=== PATIENT | female | born 1945 | race Caucasian/White ===

== ENCOUNTER 2024-11-09 19:57 | Emergency (ER) | payer MEDICARE, SELFPAY ==
[2024-11-09] VITALS (10 sets, daily range): BP systolic 133–171; BP diastolic 63–127; PULSE 69–92; RESP 20–21; TEMP 36.4–36.5; O2SAT 91–100
--- NOTE | ~2024-11-09 | CT_ITS ---
EXAMINATION: CT abdomen pelvis w con DATE: 11/09/2024 22:34 INDICATION: Abdominal pain. Constipation. TECHNIQUE: Computed tomography (CT) of the abdomen and pelvis was performed with 100 mL Omnipaque 350 intravenous contrast. Automated exposure control and iterative reconstruction technique were employed. The dose-length product was 192.65 mGy-cm. COMPARISON: None. FINDINGS: The visualized portions of lung bases demonstrate emphysema and mild atelectasis. Partially visualized is a 12 mm nodule in right middle lobe. No pleural effusion. The heart size is normal. Coronary no pericardial effusion. The liver and gallbladder are normal. Calcifications in the spleen are consistent with old granulomatous disease. There is a 2.5 cm hyperenhancing mass in the spleen. The pancreas and adrenal glands are normal. There are 3 stones in right kidney measuring up to 6 mm. There is a 10 mm cyst in left kidney. There are 4 stones in left kidney measuring up to 11 mm. There is severe left hydronephrosis. Stool distends the rectum. There is diverticulosis of the colon without evidence of diverticulitis. The appendix is not visualized. 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 There is a right hip arthroplasty. There is mild lumbar spondylosis. IMPRESSION: 1. Partially visualized 12 mm nodule in right lung middle lobe suspicious for primary bronchogenic carcinoma. Noncontrast chest CT is recommended. 2. Severe left hydronephrosis. 3. Bilateral nonobstructing kidney stones. 4. 2.5 cm hyperenhancing splenic mass, most likely a hemangioma or hamartoma. Consider PET/CT to exclude angiosarcoma. 5. Moderate stenosis of the juxtarenal aorta. 6. Stool distends the rectum. Reviewed, dictated and finalized at location E. IMPRESSION: 1. Partially visualized 12 mm nodule in right lung middle lobe suspicious for p rimary bronchogenic carcinoma. Noncontrast chest CT is recommended. 2. Severe left hydronephrosis. 3. Bilateral nonobstructing kidney stones. 4. 2.5 cm hyperenhancing splenic mass, most likely a hemangioma or hamartoma. C onsider PET/CT to exclude angiosarcoma. 5. Moderate stenosis of the juxtarenal aorta. 6. Stool distends the rectum.
[2024-11-09 20:30] LABS: Hematocrit 45.0 % (37.0-47.0); Hemoglobin 14.8 g/dL (12.0-15.0); Immature Granulocyte Percent A 0.4 % (0-0.5); Lymphocytes Absolute Auto 1.17 K/mm3 (0.9-3.2); Mean Corpuscular HGB Conc 32.9 g/dl (32-36); Mean Corpuscular Hemoglobin 30.6 pg (26-34); Mean Corpuscular Volume 93.0 fl (80-100); Nucleated Red Blood Cells Absolute Auto 0.000 K/mm3 (0.0-0.012); Nucleated Red Blood Cells Perc 0.0 % (0.0-0.2); Platelet Count Result 350 k/mm3 (150-375); Red Blood Count 4.84 M/mm3 (4.2-5.4); White Blood Count 11.1 K/mm3 (4.5-10.0)
[2024-11-09 20:45] LABS: Alanine Aminotransferase 26 U/L (6-35); Albumin Level 4.1 g/dL (3.5-5.1); Alkaline Phosphatase 96 U/L (38-126); Anion Gap 3 mmol/L (4-12); Aspartate Amino Transferase 25 U/L (14-36); Bilirubin,Total 0.5 mg/dL (0.2-1.3); Blood Urea Nitrogen 15 mg/dL (7-17); Calcium 9.9 mg/dL (8.4-10.2); Carbon Dioxide 32 mmol/L (22-30); Chloride 92 mmol/L (98-107); Estimated CRCL calculation 46 ml/min; Estimated Glomerular Filt Rate > 60; Glucose 123 mg/dL (65-110); Lipase 59 U/L (23-300); Potassium 4.3 mmol/L (3.4-5.0); Sodium 127 mmol/L (137-145); Total Protein 6.9 g/dL (6.3-8.2)
[2024-11-09 20:56] LABS: Add Urine Microscopic? YES; Appearance Urine Clear (Clear); Glucose Urine UA Negative (Negative); Leukocyte Esterase Ur Trace LEU/UL (Negative); Nitrate Urine Negative (Negative); Non Pathogenic Casts 0-2; Specific Grav Ur 1.012 (1.001-1.035)
--- OUTSIDE RECORDS SUMMARY | 2024-11-09 21:02 | XMS_ITS | Data Portability ---
Author Organization [facility] Address [address] [facility] [address] Care Team Providers Care Shader And Toner Name Role Phone BRYANT CARVAJAL Primary Care Provider [phone] Assessment No assessment recorded. Plan of Treatment Reminders Order Date Submit Date Provider Last Modified By Organization Details Last Modified Time Details Appointments ANY 15 2024 01:45P Rita Carvajal PA-C Not available Not available Not available Lab CBC 2024 025 [facility], [address] [place] [address] 2, [place], [address], 08/13/2024 13:11:47 CMP, serum or plasma 2024 025 [facility], [address] [place] [address] 2, [place], [address], 08/13/2024 13:11:45 lipid panel, serum 2024 025 [facility], [address] [place] [address] 2, [place], [address], 08/13/2024 13:11:44 HbA1c (hemoglob in A1c), blood 2024 025 [facility], [address] [place] [address] 2, [place], [address], 08/13/2024 13:11:47 Referral pulmonolo gist referral - Scheduled 5 1pm, pt adviced ER today 2024 025 asia Hooker MD, [address], [facility] [address], [address], 11/04/2024 16:04:14 Procedures None recorded. Surgeries None recorded. Imaging None recorded. Medication Orders calcitoni n (salmon) 200 unit/actu ation nasal spray 2024 025 [facility]erm[facility]/Pharmacy #[id number], [address] [place], [address], 10/07/2024 14:34:44 amlodipin e 5 mg tablet 2024 025 [facility]/Pharmacy #[id number], [address] [place], [address], 08/12/2024 14:43:48 Fosamax 70 mg tablet 2023 025 [facility]/Pharmacy #[id number], [address] [place], [address], 08/12/2024 14:16:24 Patient TargetsNo targets recorded. Patient Instructions Encounter Date Encounter Id Patient Instructions Last Modified By Organization Details Last Modified Time 12/31/2023 [id number] osteoporosis: care instructions jnanney Not available 12/31/2023 14:32:03 eating healthy foods: care instructions jnanney Not available 12/31/2023 14:32:03 08/12/2024 [id number] eating healthy foods: care instructions jnanney Not available 08/12/2024 14:43:44 chronic obstructive pulmonary disease (COPD): care instructions jnanney Not available 08/12/2024 14:43:43 08/26/2024 [id number] painful urinatio n (dysuria): care instructions jnanney Not available 08/26/2024 16:55:15 learning about high blood pressure jnanney Not available 08/26/2024 16:55:15 eating healthy foods: care instructions jnanney Not available 08/26/2024 16:55:43 11/04/2024 [id number] chronic obstructive pulmonary disease (COPD): care instructions jnanney Not available 11/04/2024 15:44:25 Reason for Referral Icu Specialist Referral for P anacinar emphysema Scheduled 11/17/2024 1pm, pt adviced ER today Referring Physician: Bryant Carvajal, Family Medicine, Encounter Date: 11/04/2024 Results Created Date Observation Date Name Description Value Unit Range Abnormal Flag Note LastModifiedBy Organization Detail LastModifiedTime 08/13/1908/13/2024 LIPID PANEL cholesterol, total 292 mg/dL 100-19 9 above high normal Not Available [facility] ([facility]) [address] [place], [address], 08/13/2024 13:11:44 08/13/19 25 08/13/2024 LIPID PANEL triglyceride s 120 mg/dL 0-149 Not Available [facility] ([facility]) [address] [place], [address], 08/13/2024 13:11:44 08/13/19 25 08/13/2024 LIPID PANEL HDL cholesterol 141 mg/dL >39 Not Available [facility]) [address] [place], [address], 08/13/2024 13:11:44 08/13/19 25 08/13/2024 LIPID PANEL VLDL cholesterol odalis 19 mg/dL 5-40 Not Available [facility] ([facility]) [address] [place], [address], 08/13/2024 13:11:44 08/13/19 25 08/13/2024 LIPID PANEL LDL chol calc ([facility]) 132 mg/dL 0-99 above high normal Not Available [facility] ([facility]) [address] [place], [address], 08/13/2024 13:11:44 08/13/19 25 08/13/2024 LIPID PANEL LDL calc comment: COMMEN T Consi greg evalu ating for Famil ial Hyper dandre stero lemia (FH), if clini rashaun indic ated. Not Available [facility] ([facility]) [address] [place], [address], 08/13/2024 13:11:44 08/13/19 25 08/13/2024 COMP. METAB OLIC PANEL (14) glucose 109 mg/dL 70-99 above high normal Not Available [facility] ([facility]) [address] [place], [address], 08/13/2024 13:11:45 08/13/19 25 08/13/2024 COMP. METAB OLIC PANEL (14) BUN 14 mg/dL 8-27 Not Available [facility] ([facility]) [address] [place], [address], 08/13/2024 13:11:45 08/13/19 25 08/13/2024 COMP. METAB OLIC PANEL (14) creatinine 0.99 mg/dL 0.57-1 .00 Not Available [facility] ([facility]) [address] [place], [address], 08/13/2024 13:11:45 08/13/19 25 08/13/2024 COMP. METAB OLIC PANEL (14) eGFR 58 mL/mi n/1.7 3 >59 below low normal Not Available [facility] ([facility]) [address] [place], [address], 08/13/2024 13:11:45 08/13/19 25 08/13/2024 COMP. METAB OLIC PANEL (14) BUN/creatini ne ratio 14 12-28 Not Available [facility] ([facility]) [address] [place], [address], 08/13/2024 13:11:45 08/13/19 25 08/13/2024 COMP. METAB OLIC PANEL (14) sodium 139 mmol/ L 134-14 4 Not Available [facility] ([facility]) [address] [place], [address], 08/13/2024 13:11:45 08/13/19 25 08/13/2024 COMP. METAB OLIC PANEL (14) potassium 4.6 mmol/ L 3.5-5. 2 Not Available [facility] ([facility]) [address] [facility] [place], [address], 08/13/2024 13:11:45 08/13/19 25 08/13/2024 COMP. METAB OLIC PANEL (14) chloride 100 mmol/ L 96-106 Not Available [facility] ([facility]) [address] [facility] [place], [address], 08/13/2024 13:11:45 08/13/19 25 08/13/2024 COMP. METAB OLIC PANEL (14) carbon dioxide, total 20 mmol/ L 20-29 Not Available [facility] ([facility]) [address] [facility] [place], [address], 08/13/2024 13:11:45 08/13/19 25 08/13/2024 COMP. METAB OLIC PANEL (14) calcium 9.6 mg/dL 8.7-10 .3 Not Available [facility] ([facility]) [address] [place], [address], 08/13/2024 13:11:45 08/13/19 25 08/13/2024 COMP. METAB OLIC PANEL (14) protein, total 6.8 g/dL 6.0-8. 5 Not Available [facility] ([facility]) [address] [place], [address], 08/13/2024 13:11:45 08/13/19 25 08/13/2024 COMP. METAB OLIC PANEL (14) albumin 4.3 g/dL 3.8-4. 8 Not Available [facility] ([facility]) [address] [place], [address], 08/13/2024 13:11:45 08/13/19 25 08/13/2024 COMP. METAB OLIC PANEL (14) globulin, total 2.5 g/dL 1.5-4. 5 Not Available [facility] ([facility]) [address] [place], [address], 08/13/2024 13:11:45 08/13/19 25 08/13/2024 COMP. METAB OLIC PANEL (14) bilirubin, total 0.4 mg/dL 0.0-1. 2 Not Available [facility] ([facility]) [address] [place], [address], 08/13/2024 13:11:45 08/13/19 25 08/13/2024 COMP. METAB OLIC PANEL (14) alkaline phosphatase 130 IU/L 44-121 above high normal Not Available [facility] ([facility]) [address] [place], [address], 08/13/2024 13:11:45 08/13/19 25 08/13/2024 COMP. METAB OLIC PANEL (14) AST (SGOT) 16 IU/L 0-40 Not Available [facility] ([facility]) [address] [place], [address], 08/13/2024 13:11:45 08/13/19 25 08/13/2024 COMP. METAB OLIC PANEL (14) ALT (SGPT) 13 IU/L 0-32 Not Available [facility] ([facility]) [address] [facility] [place], [address], 08/13/2024 13:11:45 08/13/19 25 08/13/2024 LITHO LINK CKD PROGR AM interpretati on Note Suppl kip colindres is avail able. Not Available [facility] ([facility] [address] [facility] [place], [address], 08/13/2024 13:11:46 08/13/19 25 08/13/2024 LITHO LINK CKD PROGR AM pdf . Not Available [facility] ([facility]) [address] [facility] [place], [address], 08/13/2024 13:11:46 08/13/19 25 08/13/2024 CARDI OVASC ULAR REPOR T interpretati on Note Suppl kip smith repor t is avail able. Not Available [facility] ([facility]) [address] [facility], [place], [address], 08/13/2024 13:11:46 08/13/19 25 08/13/2024 CARDI OVASC ULAR REPOR T pdf Not applic able Not Available [facility] ([facility]) [address] [facility], [place], [address], 08/13/2024 13:11:46 08/13/1908/13/2024 HEMOG LOBIN A1C hemoglobin A1C 5.5 % 4.8-5. 6 Predi abete s: 5.7 - 6.4 Diabe madie: >6.4 Glyce erasmo contr ol for adult s with diabe madie: <7.0 Not Available [facility] ([facility]) [address] [facility], [place], [address], 08/13/2024 13:11:47 08/13/19 25 08/13/2024 CBC, PLATE LET, NO DIFFE RENTI AL WBC 9.0 x10e3 /uL 3.4-10 .8 Not Available [facility] ([facility]) [address] [place], [address], 08/13/2024 13:11:47 08/13/19 25 08/13/2024 CBC, PLATE LET, NO DIFFE RENTI AL RBC 5.29 x10e6 /uL 3.77-5 .28 above high normal Not Available [facility] ([facility]) [address] [place], [address], 08/13/2024 13:11:47 08/13/19 25 08/13/2024 CBC, PLATE LET, NO DIFFE RENTI AL hemoglobin 17.2 g/dL 11.1-1 5.9 above high normal Not Available [facility] ([facility]) [address] [place], [address], 08/13/2024 13:11:47 08/13/1908/13/2024 CBC, PLATE LET, NO DIFFE RENTI AL hematocrit 51.8 % 34.0-4 6.6 above high normal Not Available [facility] ([facility]) [address] [place], [address], 08/13/2024 13:11:47 08/13/1908/13/2024 CBC, PLATE LET, NO DIFFE RENTI AL MCV 98 fL 79-97 above high normal Not Available [facility] ([facility]) [address] [place], [address], 08/13/2024 13:11:47 08/13/1908/13/2024 CBC, PLATE LET, NO DIFFE RENTI AL MCH 32.5 pg 26.6-3 3.0 Not Available [facility] ([facility]) [address] [place], [address], 08/13/2024 13:11:47 08/13/1908/13/2024 CBC, PLATE LET, NO DIFFE RENTI AL MCHC 33.2 g/dL 31.5-3 5.7 Not Available [facility] ([facility]) [address] [place], [address], 08/13/2024 13:11:47 08/13/1908/13/2024 CBC, PLATE LET, NO DIFFE RENTI AL RDW 12.3 % 11.7-1 5.4 Not Available [facility] ([facility]) [address] [place], [address], 08/13/2024 13:11:47 08/13/19 25 08/13/2024 CBC, PLATE LET, NO DIFFE RENTI AL platelets 314 x10e3 /uL 150-45 0 Not Available [facility] ([facility]) [address] [facility] [place], [address], 08/13/2024 13:11:47 08/27/19 25 08/26/2024 urina lysis , dipst ick Leukocytes Negati ve Not Available In-Office Order Internal Use Only DO Not Attach Compendium DO Not Attach Compendium, Do Not Delete/merge, 08/26/2024 18:37:53 08/27/19 25 08/26/2024 urina lysis , dipst ick Nitrite negati ve Not Available In-Office Order Internal Use Only DO Not Attach Compendium DO Not Attach Compendium, Do Not Delete/merge, 08/26/2024 18:37:53 08/27/19 25 08/26/2024 urina lysis , dipst ick Urobilinogen .2 Not Available In-Of fice Order Internal Use Only DO Not Attach Compendium DO Not Attach Compendium, Do Not Delete/merge, 08/26/2024 18:37:53 08/27/19 25 08/26/2024 urina lysis , dipst ick Protein Negati ve Not Available In-Office Order Internal Use Only DO Not Attach Compendium DO Not Attach Compendium, Do Not Delete/merge, 08/26/2024 18:37:53 08/27/19 25 08/26/2024 urina lysis , dipst ick pH 6.0 Not Available In-Office Order Internal Use Only DO Not Attach Compendium DO Not Attach Compendium, Do Not Delete/merge, 08/26/2024 18:37:53 08/27/19 25 08/26/2024 urina lysis , dipst ick Blood Negati ve Not Available In-Office Order Internal Use Only DO Not Attach Compendium DO Not Attach Compendium, Do Not Delete/merge, 08/26/2024 18:37:53 08/27/19 25 08/26/2024 urina lysis , dipst ick Specific [place] 1.010 Not Available In-Off ice Order Internal Use Only DO Not Attach Compendium DO Not Attach Compendium, Do Not Delete/merge, 08/26/2024 18:37:53 08/27/19 25 08/26/2024 urina lysis , dipst ick Ketone Negati ve Not Available In-Office Order Internal Use Only DO Not Attach Compendium DO Not Attach Compendium, Do Not Delete/merge, [facility] 08/26/2024 18:37:53 08/27/19 25 08/26/2024 urina lysis , dipst ick Bilirubin Negati ve Not Available In-Office Order Internal Use Only DO Not Attach Compendium DO Not Attach Compendium, Do Not Delete/merge, [facility] 08/26/2024 18:37:53 08/27/19 25 08/26/2024 urina lysis , dipst ick Glucose Negati ve Not Available In-Office Order Internal Use Only DO Not Attach Compendium DO Not Attach Compendium, Do Not Delete/merge, [facility] 08/26/2024 18:37:53 08/27/19 25 08/26/2024 urina lysis , dipst ick Appearance Clear Not Available In-Offi ce Order Internal Use Only DO Not Attach Compendium DO Not Attach Compendium, Do Not Delete/merge, [facility] 08/26/2024 18:37:53 08/27/1908/26/2024 urina lysis , dipst ick Color Yellow Not Available In-Office Order Internal Use Only DO Not Attach Compendium DO Not Attach Compendium, Do Not Delete/merge, [facility] 08/26/2024 18:37:53 09/30/1909/29/2024 Lipas e [Enzy matic activ ity/v olume ] in Serum or Plasm a lipase [enzymatic activity/vol ume] in serum or plasma 24 U/L low: 8U/Lhi gh: 78U/L Not Available Not Available 10/07/2024 05:16:09 09/30/19 25 09/29/2024 Lipas e [Enzy matic activ ity/v olume ] in Serum or Plasm a interpretati on and review of laboratory results Normal Not Available Not Available 03/2024 05:16:09 09/30/19 25 09/29/2024 Compr ehens joel metab olic 2000 panel - Serum or Plasm a sodium [moles/volum e] in serum or plasma 135 mmol/ L low: 136mmo l/Lhig h: 145mmo l/L low Not Available Not Available 10/07/2024 05:16:09 09/30/1909/29/2024 Compr Isagen joel [employer] 1999 panel - Serum or Plasm a potassium [moles/volum e] in serum or plasma 4.2 mmol/ L low: 3.5mmo l/Lhig h: 5.1mmo l/L Not Available Not Available 10/07/2024 05:16:09 09/30/19 25 09/29/2024 Compr [employer] joel [employer] 1999 panel - Serum or Plasm a chloride [moles/volum e] in serum or plasma 97 mmol/ L low: 98mmol /Lhigh : 107mmo l/L low Not Available Not Available 10/07/2024 05:16:09 09/30/19 25 09/29/2024 Compr [employer] joel [employer] 1999 panel - Serum or Plasm a carbon dioxide, total [moles/volum e] in serum or plasma 27 mmol/ L low: 22mmol /Lhigh : 30mmol /L Not Available Not Available 10/07/2024 05:16:09 09/30/1909/29/2024 Compr [employer] 1999 panel - Serum or Plasm a anion gap in serum or plasma by calculation 15.2 mmol/ L high: 18mmol /L Not Available Not Available 10/07/2024 05:16:09 09/30/1909/29/2024 Compr Isagen joel [employer] 1999 panel - Serum or Plasm a glucose [mass/volume ] in serum or plasma 110 mg/dL low: 70mg/d Lhigh: 99mg/d L high Not Available Not Available 10/07/2024 05:16:09 09/30/19 25 09/29/2024 Compr Isagen joel [employer] 1999 panel - Serum or Plasm a urea nitrogen [mass/volume ] in serum or plasma 8 mg/dL low: 10mg/d Lhigh: 20mg/d L low Not Available Not Available 10/07/2024 05:16:09 09/30/19 25 09/29/2024 Compr Isagen joel [employer] 2000 panel - Serum or Plasm a creatinine [mass/volume ] in serum or plasma 0.62 mg/dL low: 0.6mg/ dLhigh : 1mg/dL Not Available Not Available 10/07/2024 05:16:09/30/1909/29/2024 [facility] [employer] [facility] 1999 panel - Serum or Plasm a urea nitrogen/cre atinine [mass ratio] in serum or plasma 13 text: 12 - 20 ratio Not Available Not Available 10/07/2024 05:16:09/30/1909/29/2024 [facility] [employer] [facility] 1999 panel - Serum or Plasm a protein [mass/volume ] in serum or plasma 7 g/dL low: 6g/dLh igh: 8g/dL Not Available Not Available 10/07/2024 05:16:09/30/1909/29/2024 [facility] [employer] [place] [address] panel - Serum or Plasm a albumin [mass/volume ] in serum or plasma 4.1 g/dL low: 3.5g/d Lhigh: 5g/dL Not Available Not Available 10/07/2024 05:16:09/30/1909/29/2024 [facility] [employer] [place] [address] panel - Serum or Plasm a albumin/glob ulin [mass ratio] in serum or plasma 1.4 low: 1high: 2.2 Not Available Not Available 10/07/2024 05:16:09/30/1909/29/2024 [facility] [employer] [place] [address] panel - Serum or Plasm a calcium [mass/volume ] in serum or plasma 9.8 mg/dL low: 8.7mg/ dLhigh : 10.5mg /dL Not Available Not Available 10/07/2024 05:16:09 09/30/1909/29/2024 [facility] [employer] [facility] 1999 panel - Serum or Plasm a bilirubin.to bill [mass/volume ] in serum or plasma 0.5 mg/dL low: 0.2mg/ dLhigh : 1.2mg/ dL Not Available Not Available 10/07/2024 05:16:09/30/1909/29/2024 [facility] [employer] [facility] 2000 panel - Serum or Plasm a aspartate aminotransfe rase [enzymatic activity/vol ume] in serum or plasma 17 U/L high: 43U/L Not Available Not Available 10/07/2024 05:16:09 09/30/1909/29/2024 Compr ehens joel metab olic 1999 panel - Serum or Plasm a alanine aminotransfe rase [enzymatic activity/vol ume] in serum or plasma 9 U/L high: 56U/L Not Available Not Available 10/07/2024 05:16:09 09/30/1909/29/2024 Compr ehens joel metab olic 1999 panel - Serum or Plasm a alkaline phosphatase [enzymatic activity/vol ume] in serum or plasma 101 U/L low: 40U/Lh igh: 150U/L Not Available Not Available 10/07/2024 05:16:09 09/30/1909/29/2024 Compr ehens joel metab olic 1999 panel - Serum or Plasm a glomerular filtration rate [volume rate/area] in serum, plasma or blood by creatinine-b ased formula (CKD-epi 2020)/1.73 sq M low: 60 Creat inine Clear ance is the prefe rred crite bridget for selec ting drug dose adjus tment s in renal ly impai red patie nts. The GFR is provi ded as addit ional perti nent clini odalis infor matio n. GFR is repor gregorio in mL/mi n/1.7 3 sq m. Calcu latio n based on the 2020 Chron ic Kidne y Disea se Epide miolo gy Colla borat ion (CKD- EPI) equat ion refit witho ut adjus tment for race. Not Available Not Available 10/07/2024 05:16:09 09/30/1909/29/2024 Compr ehens joel metab olic 1999 panel - Serum or Plasm a glomerular filtration rate [volume rate/area] in serum, plasma or blood by creatinine-b ased formula (MDRD)/1.73 sq M among black population low: 60 Creat inine Clear ance is the prefe rred crite bridget for selec ting drug dose adjus tment s in renal ly impai red patie nts. The GFR is provi ded as addit ional perti nent clini odalis infor matio n. GFR is repor gregorio in mL/mi n/1.7 3 sq m. Calcu latio n based on the 2008 Chron ic Kidne y Disea se Epide miolo gy Colla borat ion (CKD- EPI). Not Available Not Available 10/07/2024 05:16:09 09/30/1909/29/2024 Compr ehens joel metab olic 2000 panel - Serum or Plasm a glomerular filtration rate [volume rate/area] in serum, plasma or blood by creatinine-b ased formula (MDRD)/1.73 sq M among non black population low: 60 Creat inine Clear ance is the prefe rred crite bridget for selec ting drug dose adjus tment s in renal ly impai red patie nts. The GFR is provi ded as addit ional perti nent clini odalis infor matio n. GFR is repor gregorio in mL/mi n/1.7 3 sq m. Calcu latio n based on the 2008 Chron ic Kidne y Disea se Epide miolo gy Colla borat ion (CKD- EPI). Not Available Not Available 10/07/2024 05:16:09 09/30/19 25 09/29/2024 Compr ehens joel metab olic 2000 panel - Serum or Plasm a interpretati on and review of laboratory results Abnorm al Not Available Not Available 05:16:09 10/02/1910/01/2024 CBC W Auto Diffe renti al panel - Blood leukocytes [#/volume] in blood by automated count 7.42 text: 4.00 - 12.00 10(3)/ mcL Not Available Not Available 10/07/2024 05:16:09 10/02/19 25 10/01/2024 CBC W Auto Diffe renti al panel - Blood erythrocytes [#/volume] in blood by automated count 4.47 text: 3.80 - 5.30 10(6)/ mcL Not Available Not Available 10/07/2024 05:16:09 10/02/1910/01/2024 CBC W Auto Diffe renti al panel - Blood hemoglobin [mass/volume ] in blood 14.4 g/dL low: 12g/dL high: 15.8g/ dL Not Available Not Available 10/07/2024 05:16:09 10/02/1910/01/2024 CBC W Auto Diffe renti al panel - Blood hematocrit [volume fraction] of blood by automated count 43.4 % low: 36%hig h: 47% Not Available Not Available 10/07/2024 05:16:09 10/02/19 25 10/01/2024 CBC W Auto Diffe renti al panel - Blood MCV [entitic mean volume] in red blood cells by automated count 97.1 fL low: 82fLhi gh: 96fL high Not Available Not Available 10/07/2024 05:16:09 10/02/19 25 10/01/2024 CBC W Auto Diffe renti al panel - Blood MCH [entitic mass] by automated count 32.2 pg low: 26pghi gh: 34pg Not Available Not Available 10/07/2024 05:16:09 10/02/1910/01/2024 CBC W Auto Diffe renti al panel - Blood MCHC [entitic mass/volume] in red blood cells by automated count 33.2 g/dL low: 31g/dL high: 36g/dL Not Available Not Available 10/07/2024 05:16:10/02/1910/01/2024 CBC W Auto Diffe renti al panel - Blood platelets [#/volume] in blood 260 text: 140 - 440 10(3)/ mcL Not Available Not Available 10/07/2024 05:16:10/02/1910/01/2024 CBC W Auto Diffe renti al panel - Blood erythrocyte [distwidth] in blood by automated count 11.9 % low: 11.8%h igh: 15.5% Not Available Not Available 10/07/2024 05:16:10/02/1910/01/2024 CBC W Auto Diffe renti al panel - Blood platelet [entitic mean volume] in blood by automated count 9.3 fL low: 9.7fLh igh: 12.4fL low Not Available Not Available 10/07/2024 05:16:09 10/02/1910/01/2024 CBC W Auto Diffe renti al panel - Blood neutrophils/ leukocytes in blood by automated count 63.2 % low: 47%hig h: 73% Not Available Not Available 10/07/2024 05:16:10/02/1910/01/2024 CBC W Auto Diffe renti al panel - Blood lymphocytes/ leukocytes in blood by automated count 27.9 % low: 18%hig h: 42% Not Available Not Available 10/07/2024 05:16:10/02/1910/01/2024 CBC W Auto Diffe renti al panel - Blood monocytes/le ukocytes in blood by automated count 7 % low: 4%high : 12% Not Available Not Available 10/07/2024 05:16:10/02/1910/01/2024 CBC W Auto Diffe renti al panel - Blood eosinophils/ leukocytes in blood by automated count 1.1 % low: 0%high : 5% Not Available Not Available 10/07/2024 05:16:10/02/1910/01/2024 CBC W Auto Diffe renti al panel - Blood basophils/le ukocytes in blood by automated count 0.5 % low: 0%high : 1% Not Available Not Available 10/07/2024 05:16:10/02/1910/01/2024 CBC W Auto Diffe renti al panel - Blood immature granulocyte 0.3 % low: 0%high : 0.4% Not Available Not Available 10/07/2024 05:16:10/02/1910/01/2024 CBC W Auto Diffe renti al panel - Blood neutrophils [#/volume] in blood by automated count 4.69 text: 1.60 - 7.70 10(3)/ mcL Not Available Not Available 10/07/2024 05:16:10/02/1910/01/2024 CBC W Auto Diffe renti al panel - Blood lymphocytes [#/volume] in blood by automated count 2.07 text: 1.30 - 3.20 10(3)/ mcL Not Available Not Available 10/07/2024 05:16:10/02/1910/01/2024 CBC W Auto Diffe renti al panel - Blood monocytes [#/volume] in blood by automated count 0.52 text: 0.20 - 1.00 10(3)/ mcL Not Available Not Available 10/07/2024 05:16:10/02/19 25 10/01/2024 CBC W Auto Diffe renti al panel - Blood eosinophils [#/volume] in blood by automated count 0.08 text: 0.00 - 0.40 10(3)/ mcL Not Available Not Available 10/07/2024 05:16:10/02/19 25 10/01/2024 CBC W Auto Diffe renti al panel - Blood basophils [#/volume] in blood by automated count 0.04 text: 0.00 - 0.10 10(3)/ mcL Not Available Not Available 10/07/2024 05:16:10/02/1910/01/2024 CBC W Auto Diffe renti al panel - Blood absolute immature granulocyte 0.02 text: 0.00 - 0.03 10 (3) mcL. Not Available Not Available 10/07/2024 05:16:10/02/1910/01/2024 CBC W Auto Diffe renti al panel - Blood nucleated erythrocytes /leukocytes [ratio] in blood 0 Not Available Not Available 03/2024 05:16:09 10/02/1910/01/2024 CBC W Auto Diffe renti al panel - Blood interpretati on and review of laboratory results Abnorm al Not Available Not Available 05:16:10/02/1910/01/2024 Basic metab olic 1999 panel - Serum or Plasm a sodium [moles/volum e] in serum or plasma 138 mmol/ L low: 136mmo l/Lhig h: 145mmo l/L Not Available Not Available 10/07/2024 05:16:09 10/02/1910/01/2024 [facility] 1999 panel - Serum or Plasm a potassium [moles/volum e] in serum or plasma 3.8 mmol/ L low: 3.5mmo l/Lhig h: 5.1mmo l/L Not Available Not Available 10/07/2024 05:16:09 10/02/1910/01/2024 [facility] 2000 panel - Serum or Plasm a chloride [moles/volum e] in serum or plasma 102 mmol/ L low: 98mmol /Lhigh : 107mmo l/L Not Available Not Available 10/07/2024 05:16:09 10/02/1910/01/2024 [facility] 1999 panel - Serum or Plasm a carbon dioxide, total [moles/volum e] in serum or plasma 28 mmol/ L low: 22mmol /Lhigh : 30mmol /L Not Available Not Available 10/07/2024 05:16:09 10/02/1910/01/2024 [facility] 1999 panel - Serum or Plasm a anion gap in serum or plasma by calculation 11.8 mmol/ L high: 18mmol /L Not Available Not Available 10/07/2024 05:16:09 10/02/1910/01/2024 [facility] 1999 panel - Serum or Plasm a glucose [mass/volume ] in serum or plasma 95 mg/dL low: 70mg/d Lhigh: 99mg/d L Not Available Not Available 10/07/2024 05:16:09 10/02/1910/01/2024 [facility] 1999 panel - Serum or Plasm a urea nitrogen [mass/volume ] in serum or plasma 11 mg/dL low: 10mg/d Lhigh: 20mg/d L Not Available Not Available 10/07/2024 05:16:10/02/1910/01/2024 [facility] 1999 panel - Serum or Plasm a creatinine [mass/volume ] in serum or plasma 0.53 mg/dL low: 0.6mg/ dLhigh : 1mg/dL low Not Available Not Available 10/07/2024 05:16:10/02/1910/01/2024 [facility] 1999 panel - Serum or Plasm a urea nitrogen/cre atinine [mass ratio] in serum or plasma 21 text: 12 - 20 ratio high Not Available Not Available 10/07/2024 05:16:10/02/1910/01/2024 [facility] 1999 panel - Serum or Plasm a calcium [mass/volume ] in serum or plasma 8.7 mg/dL low: 8.7mg/ dLhigh : 10.5mg /dL Not Available Not Available 10/07/2024 05:16:10/02/1910/01/2024 Basic metab olic 2000 panel - Serum or Plasm a glomerular filtration rate [volume rate/area] in serum, plasma or blood by creatinine-b ased formula (CKD-epi 2020)/1.73 sq M low: 60 Creat inine Clear ance is the prefe rred crite bridget for selec ting drug dose adjus tment s in renal ly impai red patie nts. The GFR is provi ded as addit ional perti nent clini odalis infor matio n. GFR is repor gregorio in mL/mi n/1.7 3 sq m. Calcu latio n based on the 2020 Chron ic Kidne y Disea se Epide miolo gy Colla borat ion (CKD- EPI) equat ion refit witho ut adjus tment for race. Not Available Not Available 10/07/2024 05:16:09 10/02/1910/01/2024 Basic metab olic 2000 panel - Serum or Plasm a glomerular filtration rate [volume rate/area] in serum, plasma or blood by creatinine-b ased formula (MDRD)/1.73 sq M among black population low: 60 Creat inine Clear ance is the prefe rred crite bridget for selec ting drug dose adjus tment s in renal ly impai red patie nts. The GFR is provi ded as addit ional perti nent clini odalis infor matio n. GFR is repor gregorio in mL/mi n/1.7 3 sq m. Calcu latio n based on the 2008 Chron ic Kidne y Disea se Epide miolo gy Colla borat ion (CKD- EPI). Not Available Not Available 10/07/2024 05:16:09 10/02/1910/01/2024 Basic metab olic 2000 panel - Serum or Plasm a glomerular filtration rate [volume rate/area] in serum, plasma or blood by creatinine-b ased formula (MDRD)/1.73 sq M among non black population low: 60 Creat inine Clear ance is the prefe rred crite bridget for selec ting drug dose adjus tment s in renal ly impai red patie nts. The GFR is provi ded as addit ional perti nent clini odalis infor matio n. GFR is repor gregorio in mL/mi n/1.7 3 sq m. Calcu latio n based on the 2009 Chron ic Kidne y Disea se Epide miolo gy Colla borat ion (CKD- EPI). Not Available Not Available 10/07/2024 05:16:09 10/02/1910/01/2024 Basic metab olic 2000 panel - Serum or Plasm a interpretati on and review of laboratory results Abnorm al Not Available Not Available 05:16:09 11/05/1911/05/2024 influ fred virus A + B and SARS CoV 2 (COVI D-19) and RSV RNA panel , RANJITH+p robe, respi rator y speci men influenza virus A RNA, ql, RANJITH+probe, upper respiratory specimen Negati ve text: negati ve, error Not Available Not Available 11/05/2024 10:18:19 11/05/1911/05/2024 influ fred virus A + B and SARS CoV 2 (COVI D-19) and RSV RNA panel , RANJITH+p robe, respi rator y speci men influenza virus B RNA, ql, RANJITH+probe, upper respiratory specimen Negati ve text: negati ve Not Available Not Available 11/05/2024 10:18:19 11/05/1911/05/2024 influ fred virus A + B and SARS CoV 2 (COVI D-19) and RSV RNA panel , RANJITH+p robe, respi rator y speci men respiratory syncytial virus RNA, ql, RANJITH+probe, respiratory specimen Negati ve text: negati ve Not Available Not Available 11/05/2024 10:18:19 11/05/1911/05/2024 influ fred virus A + B and SARS CoV 2 (COVI D-19) and RSV RNA panel , RANJITH+p robe, respi rator y speci men sars cov 2 RNA (covid-19), ql, call box wirer-PCR, respiratory specimen NOT DETECT ED text: (refer ence range for this test IS not detect ed) This test was perfo rmed by a Rever se Trans cript ion PCR Metho d. Not Available Not Available 11/05/2024 10:18:19 11/05/1911/05/2024 influ fred virus A + B and SARS CoV 2 (COVI D-19) and RSV RNA panel , RANJITH+p robe, respi rator y speci men lab interpretati on Normal Not Available Not Available 02/2024 10:18:19 11/05/1911/04/2024 CMP, serum or plasm a sodium, serum or plasma 132 mmol/ L low: 136mmo l/Lhig h: 145mmo l/L low Not Available Not Available 11/05/2024 10:18:18 11/05/1911/04/2024 CMP, serum or plasm a potassium, serum or plasma 4 mmol/ L low: 3.5mmo l/Lhig h: 5.1mmo l/L Not Available Not Available 11/05/2024 10:18:18 11/05/1911/04/2024 CMP, serum or plasm a chloride, serum or plasma 92 mmol/ L low: 98mmol /Lhigh : 107mmo l/L low Not Available Not Available 11/05/2024 10:18:18 11/05/1911/04/2024 CMP, serum or plasm a CO2, (carbon dioxide), total, serum or plasma 27 mmol/ L low: 22mmol /Lhigh : 30mmol /L Not Available Not Available 11/05/2024 10:18:18 11/05/1911/04/2024 CMP, serum or plasm a anion gap, serum or plasma 17 mmol/ L high: 18mmol /L Not Available Not Available 11/05/2024 10:18:18 11/05/1911/04/2024 CMP, serum or plasm a glucose, qn [mass/volume ], serum or plasma 108 mg/dL low: 70mg/d Lhigh: 99mg/d L high Not Available Not Available 11/05/2024 10:18:18 11/05/1911/04/2024 CMP, serum or plasm a BUN (blood urea nitrogen), serum or plasma 11 mg/dL low: 10mg/d Lhigh: 20mg/d L Not Available Not Available 11/05/2024 10:18:18 11/05/1911/04/2024 CMP, serum or plasm a creatinine, serum or plasma 0.64 mg/dL low: 0.6mg/ dLhigh : 1mg/dL Not Available Not Available 11/05/2024 10:18:18 11/05/1911/04/2024 CMP, serum or plasm a BUN/creatini ne, ratio, serum 17 text: 12 - 20 ratio Not Available Not Available 11/05/2024 10:18:18 11/05/1911/04/2024 CMP, serum or plasm a protein, total, serum 7.4 g/dL low: 6g/dLh igh: 8g/dL Not Available Not Available 11/05/2024 10:18:18 11/05/1911/04/2024 CMP, serum or plasm a albumin, serum or plasma 4.3 g/dL low: 3.5g/d Lhigh: 5g/dL Not Available Not Available 11/05/2024 10:18:18 11/05/1911/04/2024 CMP, serum or plasm a albumin/glob ulin, ratio, serum 1.4 low: 1high: 2.2 Not Available Not Available 11/05/2024 10:18:18 11/05/1911/04/2024 CMP, serum or plasm a calcium, serum or plasma 10.3 mg/dL low: 8.7mg/ dLhigh : 10.5mg /dL Not Available Not Available 11/05/2024 10:18:18 11/05/1911/04/2024 CMP, serum or plasm a bilirubin, total, serum or plasma 0.5 mg/dL low: 0.2mg/ dLhigh : 1.2mg/ dL Not Available Not Available 11/05/2024 10:18:18 11/05/1911/04/2024 CMP, serum or plasm a AST/SGOT (aspartate aminotransfe rase), serum or plasma 20 U/L high: 43U/L Not Available Not Available 11/05/2024 10:18:18 11/05/1911/04/2024 CMP, serum or plasm a ALT (alanine aminotransfe rase), serum or plasma 14 U/L high: 56U/L Not Available Not Available 11/05/2024 10:18:18 11/05/1911/04/2024 CMP, serum or plasm a alkaline phosphatase, serum or plasma 103 U/L low: 40U/Lh igh: 150U/L Not Available Not Available 11/05/2024 10:18:18 11/05/1911/04/2024 CMP, serum or plasm a glomerular filtration rate/1.73 sq M predicted, qn, creatinine based formula (CKD-epi 2020), serum or plasma or blood low: 60 Creat inine Clear ance is the prefe rred crite bridget for selec ting drug dose adjus tment s in renal ly impai red patie nts. The GFR is provi ded as addit ional perti nent clini odalis infor matio n. GFR is repor gregorio in mL/mi n/1.7 3 sq m. Calcu latio n based on the 2020 Chron ic Kidne y Disea se Epide miolo gy Colla borat ion (CKD- EPI) equat ion refit witho ut adjus tment for race. Not Available Not Available 11/05/2024 10:18:18 11/05/1911/04/2024 CMP, serum or plasm a GFR, estimated (eGFR), serum () (obs) low: 60 Creat inine Clear ance is the prefe rred crite bridget for selec ting drug dose adjus tment s in renal ly impai red patie nts. The GFR is provi ded as addit ional perti nent clini odalis infor matio n. GFR is repor gregorio in mL/mi n/1.7 3 sq m. Calcu latio n based on the 2008 Chron ic Kidne y Disea se Epide miolo gy Colla borat ion (CKD- EPI). Not Available Not Available 11/05/2024 10:18:18 11/05/1911/04/2024 CMP, serum or plasm a glomerular filtration rate/1.73 sq M predicted among non-blacks, qn, creatinine based formula, serum or plasma or blood low: 60 Creat inine Clear ance is the prefe rred crite bridget for selec ting drug dose adjus tment s in renal ly impai red patie nts. The GFR is provi ded as addit ional perti nent clini odalis infor matio n. GFR is repor gregorio in mL/mi n/1.7 3 sq m. Calcu latio n based on the 2009 Chron ic Kidne y Disea se Epide miolo gy Colla borat ion (CKD- EPI). Not Available Not Available 11/05/2024 10:18:18 11/05/1911/04/2024 CMP, serum or plasm a lab interpretati on Abnorm al Not Available Not Available 10:18:18 11/06/1911/05/2024 CBC w/ auto diff WBC, auto, blood 6.32 text: 4.00 - 12.00 10(3)/ mcL Not Available Not Available 11/05/2024 10:18:19 11/06/1911/05/2024 CBC w/ auto diff RBC count, blood 4.79 text: 3.80 - 5.30 10(6)/ mcL Not Available Not Available 11/05/2024 10:18:19 11/06/1911/05/2024 CBC w/ auto diff hemoglobin (Hb), blood 14.9 g/dL low: 12g/dL high: 15.8g/ dL Not Available Not Available 11/05/2024 10:18:19 11/06/1911/05/2024 CBC w/ auto diff hematocrit, automated count, blood 44.6 % low: 36%hig h: 47% Not Available Not Available 11/05/2024 10:18:19 11/06/1911/05/2024 CBC w/ auto diff MCV, blood 93.1 fL low: 82fLhi gh: 96fL Not Available Not Available 11/05/2024 10:18:19 11/06/1911/05/2024 CBC w/ auto diff MCH, qn, automated (obs) 31.1 pg low: 26pghi gh: 34pg Not Available Not Available 11/05/2024 10:18:19 11/06/1911/05/2024 CBC w/ auto diff MCHC, qn, automated (obs) 33.4 g/dL low: 31g/dL high: 36g/dL Not Available Not Available 11/05/2024 10:18:19 11/06/1911/05/2024 CBC w/ auto diff platelet count, blood 354 text: 140 - 440 10(3)/ mcL Not Available Not Available 11/05/2024 10:18:19 11/06/1911/05/2024 CBC w/ auto diff erythrocyte distribution width, ratio, automated (obs) 11.7 % low: 11.8%h igh: 15.5% low Not Available Not Available 11/05/2024 10:18:19 11/06/1911/05/2024 CBC w/ auto diff platelet mean volume, qn, automated, blood (obs) 9.6 fL low: 9.7fLh igh: 12.4fL low Not Available Not Available 11/05/2024 10:18:19 11/06/1911/05/2024 CBC w/ auto diff neutrophils/ 100 leukocytes, automated, blood (obs) 90.1 % low: 47%hig h: 73% high Not Available Not Available 11/05/2024 10:18:19 11/06/1911/05/2024 CBC w/ auto diff lymphocytes/ 100 leukocytes, automated, blood (obs) 9.3 % low: 18%hig h: 42% low Not Available Not Available 11/05/2024 10:18:19 11/06/1911/05/2024 CBC w/ auto diff monocytes/10 0 leukocytes, automated, blood (obs) 0.3 % low: 4%high : 12% low Not Available Not Available 11/05/2024 10:18:19 11/06/1911/05/2024 CBC w/ auto diff eosinophils/ 100 leukocytes, automated, blood (obs) 0 % low: 0%high : 5% Not Available Not Available 11/05/2024 10:18:19 11/06/1911/05/2024 CBC w/ auto diff basophils/10 0 leukocytes, automated, blood (obs) 0 % low: 0%high : 1% Not Available Not Available 11/05/2024 10:18:19 11/06/1911/05/2024 CBC w/ auto diff immature granulocyte 0.3 % low: 0%high : 0.4% Not Available Not Available 11/05/2024 10:18:19 11/06/1911/05/2024 CBC w/ auto diff neutrophil count, absolute (anc), blood (obs) 5.69 text: 1.60 - 7.70 10(3)/ mcL Not Available Not Available 11/05/2024 10:18:19 11/06/1911/05/2024 CBC w/ auto diff lymphocytes, quantitative , blood, automated count (obs) 0.59 text: 1.30 - 3.20 10(3)/ mcL low Not Available Not Available 11/05/2024 10:18:19 11/06/1911/05/2024 CBC w/ auto diff monocytes, count, automated, blood (obs) 0.02 text: 0.20 - 1.00 10(3)/ mcL low Not Available Not Available 11/05/2024 10:18:19 11/06/1911/05/2024 CBC w/ auto diff eosinophils, auto, blood, absolute 0 text: 0.00 - 0.40 10(3)/ mcL Not Available Not Available 11/05/2024 10:18:19 11/06/1911/05/2024 CBC w/ auto diff basophils, quant, auto, blood (obs) 0 text: 0.00 - 0.10 10(3)/ mcL Not Available Not Available 11/05/2024 10:18:19 11/06/1911/05/2024 CBC w/ auto diff absolute immature granulocyte 0.02 text: 0.00 - 0.03 10 (3) mcL. Not Available Not Available 11/05/2024 10:18:19 11/06/1911/05/2024 CBC w/ auto diff nucleated erythrocytes /100 leukocytes, ratio, blood (obs) 0 Not Available Not Available 02/2024 10:18:19 11/06/1911/05/2024 CBC w/ auto diff lab interpretati on Abnorm al Not Available Not Available 10:18:19 11/06/1911/05/2024 BMP, serum or plasm a sodium, serum or plasma 133 mmol/ L low: 136mmo l/Lhig h: 145mmo l/L low Not Available Not Available 11/05/2024 10:18:19 11/06/1911/05/2024 BMP, serum or plasm a potassium, serum or plasma 4.1 mmol/ L low: 3.5mmo l/Lhig h: 5.1mmo l/L Not Available Not Available 11/05/2024 10:18:19 11/06/1911/05/2024 BMP, serum or plasm a chloride, serum or plasma 96 mmol/ L low: 98mmol /Lhigh : 107mmo l/L low Not Available Not Available 11/05/2024 10:18:19 11/06/1911/05/2024 BMP, serum or plasm a CO2, (carbon dioxide), total, serum or plasma 25 mmol/ L low: 22mmol /Lhigh : 30mmol /L Not Available Not Available 11/05/2024 10:18:19 11/06/1911/05/2024 BMP, serum or plasm a anion gap, serum or plasma 16.1 mmol/ L high: 18mmol /L Not Available Not Available 11/05/2024 10:18:19 11/06/1911/05/2024 BMP, serum or plasm a glucose, qn [mass/volume ], serum or plasma 216 mg/dL low: 70mg/d Lhigh: 99mg/d L high Not Available Not Available 11/05/2024 10:18:19 11/06/1911/05/2024 BMP, serum or plasm a BUN (blood urea nitrogen), serum or plasma 13 mg/dL low: 10mg/d Lhigh: 20mg/d L Not Available Not Available 11/05/2024 10:18:19 11/06/1911/05/2024 BMP, serum or plasm a creatinine, serum or plasma 0.69 mg/dL low: 0.6mg/ dLhigh : 1mg/dL Not Available Not Available 11/05/2024 10:18:19 11/06/1911/05/2024 BMP, serum or plasm a BUN/creatini ne, ratio, serum 19 text: 12 - 20 ratio Not Available Not Available 11/05/2024 10:18:19 11/06/1911/05/2024 BMP, serum or plasm a calcium, serum or plasma 9.5 mg/dL low: 8.7mg/ dLhigh : 10.5mg /dL Not Available Not Available 11/05/2024 10:18:19 11/06/1911/05/2024 BMP, serum or plasm a glomerular filtration rate/1.73 sq M predicted, qn, creatinine based formula (CKD-epi 2020), serum or plasma or blood low: 60 Creat inine Clear ance is the prefe rred crite bridget for selec ting drug dose adjus tment s in renal ly impai red patie nts. The GFR is provi ded as addit ional perti nent clini odalis infor matio n. GFR is repor gregorio in mL/mi n/1.7 3 sq m. Calcu latio n based on the 2020 Chron ic Kidne y Disea se Epide miolo gy Colla borat ion (CKD- EPI) equat ion refit witho ut adjus tment for race. Not Available Not Available 11/05/2024 10:18:19 11/06/1911/05/2024 BMP, serum or plasm a GFR, estimated (eGFR), serum () (obs) low: 60 Creat inine Clear ance is the prefe rred crite bridget for selec ting drug dose adjus tment s in renal ly impai red patie nts. The GFR is provi ded as addit ional perti nent clini odalis infor matio n. GFR is repor gregorio in mL/mi n/1.7 3 sq m. Calcu latio n based on the 2008 Chron ic Kidne y Disea se Epide miolo gy Colla borat ion (CKD- EPI). Not Available Not Available 11/05/2024 10:18:19 11/06/1911/05/2024 BMP, serum or plasm a glomerular filtration rate/1.73 sq M predicted among non-blacks, qn, creatinine based formula, serum or plasma or blood low: 60 Creat inine Clear ance is the prefe rred crite bridget for selec ting drug dose adjus tment s in renal ly impai red patie nts. The GFR is provi ded as addit ional perti nent clini odalis infor matio n. GFR is repor gregorio in mL/mi n/1.7 3 sq m. Calcu latio n based on the 2008 Chron ic Kidne y Disea se Epide miolo gy Colla borat ion (CKD- EPI). Not Available Not Available 11/05/2024 10:18:19 11/06/1911/05/2024 BMP, serum or plasm a lab interpretati on Abnorm al Not Available Not Available 10:18:19 11/07/1911/06/2024 CBC w/ auto diff WBC, auto, blood 12.16 text: 4.00 - 12.00 10(3)/ mcL high Not Available Not Available 11/06/2024 11:00:08 11/07/1911/06/2024 CBC w/ auto diff RBC count, blood 4.17 text: 3.80 - 5.30 10(6)/ mcL Not Available Not Available 11/06/2024 11:00:08 11/07/1911/06/2024 CBC w/ auto diff hemoglobin (Hb), blood 13.1 g/dL low: 12g/dL high: 15.8g/ dL Not Available Not Available 11/06/2024 11:00:08 11/07/1911/06/2024 CBC w/ auto diff hematocrit, automated count, blood 38.9 % low: 36%hig h: 47% Not Available Not Available 11/06/2024 11:00:08 11/07/1911/06/2024 CBC w/ auto diff MCV, blood 93.3 fL low: 82fLhi gh: 96fL Not Available Not Available 11/06/2024 11:00:08 11/07/1911/06/2024 CBC w/ auto diff MCH, qn, automated (obs) 31.4 pg low: 26pghi gh: 34pg Not Available Not Available 11/06/2024 11:00:08 11/07/1911/06/2024 CBC w/ auto diff MCHC, qn, automated (obs) 33.7 g/dL low: 31g/dL high: 36g/dL Not Available Not Available 11/06/2024 11:00:08 11/07/1911/06/2024 CBC w/ auto diff platelet count, blood 314 text: 140 - 440 10(3)/ mcL Not Available Not Available 11/06/2024 11:00:08 11/07/1911/06/2024 CBC w/ auto diff erythrocyte distribution width, ratio, automated (obs) 12 % low: 11.8%h igh: 15.5% Not Available Not Available 11/06/2024 11:00:08 11/07/1911/06/2024 CBC w/ auto diff platelet mean volume, qn, automated, blood (obs) 9.4 fL low: 9.7fLh igh: 12.4fL low Not Available Not Available 11/06/2024 11:00:08 11/07/1911/06/2024 CBC w/ auto diff neutrophils/ 100 leukocytes, automated, blood (obs) 74.2 % low: 47%hig h: 73% high Not Available Not Available 11/06/2024 11:00:08 11/07/1911/06/2024 CBC w/ auto diff lymphocytes/ 100 leukocytes, automated, blood (obs) 17.2 % low: 18%hig h: 42% low Not Available Not Available 11/06/2024 11:00:08 11/07/1911/06/2024 CBC w/ auto diff monocytes/10 0 leukocytes, automated, blood (obs) 7.9 % low: 4%high : 12% Not Available Not Available 11/06/2024 11:00:08 11/07/1911/06/2024 CBC w/ auto diff eosinophils/ 100 leukocytes, automated, blood (obs) 0.1 % low: 0%high : 5% Not Available Not Available 11/06/2024 11:00:08 11/07/1911/06/2024 CBC w/ auto diff basophils/10 0 leukocytes, automated, blood (obs) 0.2 % low: 0%high : 1% Not Available Not Available 11/06/2024 11:00:08 11/07/1911/06/2024 CBC w/ auto diff immature granulocyte 0.4 % low: 0%high : 0.4% Not Available Not Available 11/06/2024 11:00:08 11/07/19 25 11/06/2024 CBC w/ auto diff neutrophil count, absolute (anc), blood (obs) 9.03 text: 1.60 - 7.70 10(3)/ mcL high Not Available Not Available 11/06/2024 11:00:08 11/07/1911/06/2024 CBC w/ auto diff lymphocytes, quantitative , blood, automated count (obs) 2.09 text: 1.30 - 3.20 10(3)/ mcL Not Available Not Available 11/06/2024 11:00:08 11/07/19 25 11/06/2024 CBC w/ auto diff monocytes, count, automated, blood (obs) 0.96 text: 0.20 - 1.00 10(3)/ mcL Not Available Not Available 11/06/2024 11:00:08 11/07/1911/06/2024 CBC w/ auto diff eosinophils, auto, blood, absolute 0.01 text: 0.00 - 0.40 10(3)/ mcL Not Available Not Available 11/06/2024 11:00:08 11/07/1911/06/2024 CBC w/ auto diff basophils, quant, auto, blood (obs) 0.02 text: 0.00 - 0.10 10(3)/ mcL Not Available Not Available 11/06/2024 11:00:08 11/07/1911/06/2024 CBC w/ auto diff absolute immature granulocyte 0.05 text: 0.00 - 0.03 10 (3) mcL. high Not Available Not Available 11/06/2024 11:00:08 11/07/1911/06/2024 CBC w/ auto diff nucleated erythrocytes /100 leukocytes, ratio, blood (obs) 0 Not Available Not Available 03/2024 11:00:08 11/07/1911/06/2024 CBC w/ auto diff lab interpretati on Abnorm al Not Available Not Available 11:00:08 11/07/1911/06/2024 BMP, serum or plasm a sodium, serum or plasma 137 mmol/ L low: 136mmo l/Lhig h: 145mmo l/L Not Available Not Available 11/06/2024 11:00:08 11/07/1911/06/2024 BMP, serum or plasm a potassium, serum or plasma 3.8 mmol/ L low: 3.5mmo l/Lhig h: 5.1mmo l/L Not Available Not Available 11/06/2024 11:00:08 11/07/1911/06/2024 BMP, serum or plasm a chloride, serum or plasma 101 mmol/ L low: 98mmol /Lhigh : 107mmo l/L Not Available Not Available 11/06/2024 11:00:08 11/07/1911/06/2024 BMP, serum or plasm a CO2, (carbon dioxide), total, serum or plasma 28 mmol/ L low: 22mmol /Lhigh : 30mmol /L Not Available Not Available 11/06/2024 11:00:08 11/07/1911/06/2024 BMP, serum or plasm a anion gap, serum or plasma 11.8 mmol/ L high: 18mmol /L Not Available Not Available 11/06/2024 11:00:08 11/07/1911/06/2024 BMP, serum or plasm a glucose, qn [mass/volume ], serum or plasma 95 mg/dL low: 70mg/d Lhigh: 99mg/d L Not Available Not Available 11/06/2024 11:00:08 11/07/1911/06/2024 BMP, serum or plasm a BUN (blood urea nitrogen), serum or plasma 15 mg/dL low: 10mg/d Lhigh: 20mg/d L Not Available Not Available 11/06/2024 11:00:08 11/07/1911/06/2024 BMP, serum or plasm a creatinine, serum or plasma 0.58 mg/dL low: 0.6mg/ dLhigh : 1mg/dL low Not Available Not Available 11/06/2024 11:00:08 11/07/1911/06/2024 BMP, serum or plasm a BUN/creatini ne, ratio, serum 26 text: 12 - 20 ratio high Not Available Not Available 11/06/2024 11:00:08 11/07/1911/06/2024 BMP, serum or plasm a calcium, serum or plasma 9.2 mg/dL low: 8.7mg/ dLhigh : 10.5mg /dL Not Available Not Available 11/06/2024 11:00:08 11/07/1911/06/2024 BMP, serum or plasm a glomerular filtration rate/1.73 sq M predicted, qn, creatinine based formula (CKD-epi 2020), serum or plasma or blood low: 60 Creat inine Clear ance is the prefe rred crite bridget for selec ting drug dose adjus tment s in renal ly impai red patie nts. The GFR is provi ded as addit ional perti nent clini odalis infor matio n. GFR is repor gregorio in mL/mi n/1.7 3 sq m. Calcu latio n based on the 2020 Chron ic Kidne y Disea se Epide miolo gy Colla borat ion (CKD- EPI) equat ion refit witho ut adjus tment for race. Not Available Not Available 11/06/2024 11:00:08 11/07/1911/06/2024 BMP, serum or plasm a GFR, estimated (eGFR), serum () (obs) low: 60 Creat inine Clear ance is the prefe rred crite bridget for selec ting drug dose adjus tment s in renal ly impai red patie nts. The GFR is provi ded as addit ional perti nent clini odalis infor matio n. GFR is repor gregorio in mL/mi n/1.7 3 sq m. Calcu latio n based on the 2008 Chron ic Kidne y Disea se Epide miolo gy Colla borat ion (CKD- EPI). Not Available Not Available 11/06/2024 11:00:08 11/07/1911/06/2024 BMP, serum or plasm a glomerular filtration rate/1.73 sq M predicted among non-blacks, qn, creatinine based formula, serum or plasma or blood low: 60 Creat inine Clear ance is the prefe rred crite bridget for selec ting drug dose adjus tment s in renal ly impai red patie nts. The GFR is provi ded as addit ional perti nent clini odalis infor matio n. GFR is repor gregorio in mL/mi n/1.7 3 sq m. Calcu latio n based on the 2008 Chron ic Kidne y Disea se Epide miolo gy Colla borat ion (CKD- EPI). Not Available Not Available 11/06/2024 11:00:08 11/07/19 25 11/06/2024 BMP, serum or plasm a lab interpretati on Abnorm al Not Available Not Available 11:00:08 12/25/19 24 12/25/2023 bone densi ty No observ ation record ed. TIM [facility]es [address] [place], [address], 12/26/2023 13:15:19 10/29/19 25 10/28/2024 elect kaushalgrace gonzalez am, routi ne ECG, 12 leads min No observ ation record ed. [email or web address] [facility] [address] [place] [address] [place], [address], 10/29/2024 09:40:18 Result Notes None recorded. Problems No Known Problems Procedures Surgical History Date Name Laterality Status Provider Name and Address Organization Details Recorded Time 07/07/19 extraction of cataract completed Angelica Cortez [place] [facility] 11/01/2021 14:11:38 Total hysterectomy completed Miryam Vickers MA [facility] 05/24/2017 11:29:48 Tubal Ligation completed Miryam Vickers MA [facility] 05/24/2017 11:30:04 Joint Replacement completed Miryam Vickers MA [facility] 05/24/2017 11:30:19 Imaging Results None recorded. Procedure Notes None recorded. Medical Equipment None Reported. Allergies Allergen ID Allergen Name Allergen Category Reaction Reaction Severity Criticality Documentation Date Start Date Code Code System Note Provider Name and Address Organization Details Recorded Time [id number] codeine medicatio n Not available Not available Not available 05/24/2017 2670 RxNorm NATHAN Alba, [place] - [place] 8 11:31:21 Medications Name Sig Start Date Stop Date Status Note LastModified by Organization Details LastModified Time losartan 50 mg tablet Take 1 tablet BID 11/28 completed Not Available Not Available Not Available amoxicill in 500 mg capsule Take 1 capsule every 8 hours by oral route for 10 days. 04/28 completed Not Available Not Available Not Available hydrocodo ne 5 mg-acetam inophen 325 mg tablet 06/17 /2020 completed Not Available Not Available Not Available sucralfat e 1 gram tablet TAKE 1 TABLET BY MOUTH EVERY 6 HOURS FOR 5 DAYS. 08/12 completed Not Available Not Available Not Available ondansetr on HCl 4 mg tablet TAKE 1-2 TABLETS BY MOUTH EVERY 8 HOURS NEEDED FOR NAUSEA - 1ST LINE FOR UP TO 10 DAYS. 10/07 completed Not Available Not Available Not Available alendrona te 70 mg tablet Take 1 tablet every week by oral route as directed . 08/12 completed Not Available Not Available Not Available amlodipin e 5 mg tablet TAKE 1 TABLET BY MOUTH EVERY DAY active Not Available Not Available No t Available omeprazol e 40 mg capsule,d elayed release TAKE 1 CAPSULE BY MOUTH EVERY DAY (BEFORE DINNER) 11/04 completed Not Available Not Available Not Available tramadol 50 mg tablet 07/22 completed Not Available Not Available Not Available famotidin e 20 mg tablet TAKE 1 TABLET BY MOUTH TWICE A DAY 11/04 completed Not Available Not Available Not Available ciproflox acin 0.3 % eye drops INSTILL 1 DROP INTO AFFECTED EYE(S) BY OPHTHALM IC ROUTE EVERY 2 HOURSWHI LE AWAKE FOR 2 DAYS THEN 1 DROP EVERY 4 HRS WHILE AWAKE FOR 5 DAYS 01/22 completed Not Available Not Available Not Available calcitoni n (salmon) 200 unit/actu ation nasal spray USE 2 SPRAYS IN ALTERNAT ING NOSTRIL ONCE A DAY DIRECTED 10/07 completed Not Available Not Available Not Available pantopraz ole 40 mg tablet,de layed release TAKE 1 TABLET BY MOUTH EVERY DAY 10/07 completed Not Available Not Available Not Available lisinopri l 5 mg tablet Take 1 tablet every day by oral route for 90 days. 04/28 completed was having problems with kidneys Not Available Not Available Not Available ondansetr on 4 mg disintegr ating tablet TAKE 1 TABLET BY MOUTH EVERY 8 HOURS NEEDED FOR NAUSEA FIRST LINE 10/07 completed Not Available Not Available Not Available losartan 100 mg tablet TAKE 1 TABLET BY MOUTH EVERY DAY 10/29 completed Not Available Not Available Not Available fluticaso ne propionat e 50 mcg/actua tion nasal spray,billy pension Lantry 1 spray every day by intranas al route for 30 days. 07/22 completed Not Available Not Available Not Available diazepam 5 mg tablet Take 1 tablet twice a day by oral route as needed for 30 days. 07/22 completed Not Available Not Available Not Available amoxicill in 875 mg-potass ium clavulana te 125 mg tablet TAKE 1 TABLET BY MOUTH TWICE A DAY FOR 10 DAYS 12/30 completed Not Available Not Available Not Available tobramyci n 0.3 %-dexamet hasone 0.1 % eye drops,billy pension 11/01 completed Not Available Not Available Not Available nitrofura ntoin monohydra te/macroc rystals 100 mg capsule TAKE 1 CAPSULE BY MOUTH EVERY 12 HOURS FOR 10 DAYS 12/30 completed Not Available Not Available Not Available Baby Aspirin 11/04 completed Not Available Not Available Not Available Vitals Date Recorded Body height Body mass index (BMI) Body weight Oxygen saturation Oxygen saturation in Arterial blood by Pulse oximetry Heart rate Systolic And Diastolic Provider Name and Address Organization Details Last Updated DateTime 5 160.02 cm 17.9 kg/m2 52869.8 3 g 93 % 93 % 86 /min 121/71 mm[Hg] Zuleima Cleveland MA [facility] 5 14:19:22 Date Recorded Body height Body mass index (BMI) Body weight Oxygen saturation Oxygen saturation in Arterial blood by Pulse oximetry Heart rate Systolic And Diastolic Provider Name and Address Organization Details Last Updated DateTime 5 160.02 cm 17.9 kg/m2 55866.8 3 g 95 % 95 % 97 /min 166/93 mm[Hg] Zuleima Cleveland MA [facility] 5 16:35:53 Date Recorded Body height Body mass index (BMI) Body weight Oxygen saturation Oxygen saturation in Arterial blood by Pulse oximetry Heart rate Systolic And Diastolic Provider Name and Address Organization Details Last Updated DateTime 5 160.02 cm 16.8 kg/m2 14035.2 8 g 89 % 89 % 92 /min 130/73 mm[Hg] NATHAN Schultz [facility] 5 14:38:08 Date Recorded Oxygen saturation Oxygen saturation in Arterial blood by Pulse oximetry Oxygen saturation Oxygen saturation in Arterial blood by Pulse oximetry Provider Name and Address Organization Details Last Updated DateTime 11/04/2024 89 % 89 % 89 % 89 % Zuleima Cleveland MA [facility] 5 15:21:40 Date Recorded Body height Body mass index (BMI) Body weight Heart rate Respiratory rate Systolic And Diastolic Provider Name and Address Organization Details Last Updated DateTime 5 160.02 cm 15.8 kg/m2 76337.7 2 g 88 /min 16 /min 122/62 mm[Hg] MARY Luna [facility] 5 15:01:54 Date Recorded Body height Body mass index (BMI) Body weight Oxygen saturation Oxygen saturation in Arterial blood by Pulse oximetry Heart rate Systolic And Diastolic Provider Name and Address Organization Details Last Updated DateTime 4 160.02 cm 17.7 kg/m2 02761.9 4 g 97 % 97 % 77 /min 162/71 mm[Hg] Aisha Marie MA [facility] 4 14:20:46 Social History Question Answer Notes LastModified by Organizat ion Details LastModified Time Tobacco Smoking Status Current Every Day Smoker Miryam Vickers MA [facility] 05/24/2017 11:29:01 Are You Blind Or Do You Have Difficulty Seeing? Yes Glasses Information not available 11/01/2021 What Is Your Level Of Caffeine Consumption? Moderate 2 Cups Of Coffee Per Day Information not available 11/01/2021 In The 14 Days Before Symptom Onset, Have You Had Close Contact With A Laboratory-confir med COVID-19 While That Case Was Ill? No Information not available 04/28/2021 In The 14 Days Before Symptom Onset, Have You Had Close Contact With A Person Who Is Under Investigation For COVID-19 While That Person Was Ill? No Information not available 04/28/2021 Have You Been To An Area Known To Be High Risk For COVID-19? No Information not available 04/28/2021 Are You Deaf Or Do You Have Serious Difficulty Hearing? No Information not available 11/01/2021 What Type Of Diet Are You Following? REGULAR Information not available 07/23/2019 Which Illicit Or Recreational Drugs Have You Used? None Information not available 07/23/2019 Live Alone Or With Others? Alone Information not available 01/23/2020 What Was The Date Of Your Most Recent Tobacco Screening? 11/04/2024 Information not available 11/04/2024 What Is Your Relationship Status? Information not available 04/28/2021 Do You Use Your Seat Belt Or Car Seat Routinely? Yes Information not available 06/13/2022 Are You Sexually Active? No Information not available 06/13/2022 Do You Have Smoke And Carbon Monoxide Detectors In Your Home? Yes Information not available 04/28/2021 Are You Passively Exposed To Smoke? Yes Information no t available 04/28/2021 How Much Tobacco Do You Smoke? 1 PPD Information not available 05/24/2017 General Stress Level High Information not available 01/23/2020 Has Tobacco Cessation Counseling Been Provided? Yes Information not available 04/28/2021 On What Date Was Tobacco Cessation Counseling Provided? 11/04/2024 Information not available 11/04/2024 How Many Years Have You Smoked Tobacco? 50 Information not available 05/24/2017 Sex: Female Functional Status Question Answer Note LastModified by Organizat ion Details LastModified Time Do you use any illicit or recreational drugs? No Information not available 04/28/2021 Do you or have you ever used any other forms of tobacco or nicotine? No Information not available 04/28/2021 What is your level of alcohol consumption? Moderate Information not available 04/28/2021 Do you or have you ever used smokeless tobacco? Never used smokeless tobacco Information not available 07/23/2019 Are you currently employed? No Information not available 07/23/2019 Are you able to care for yourself independently? Yes Information not available 07/23/2019 Do you or have you ever used e-cigarettes or vape? Never used electronic cigarettes Information not available 07/23/2019 What is your exercise level? None Information not available 11/01/2021 Mental Status Question Answer Note LastModified by Organizat ion Details LastModified Time Do you feel stressed (tense, restless, nervous, or anxious, or unable to sleep at night)? [id number] trouble sleeping Information not available 11/01/2021 Family History Relationship Description Onset Age of this Age Resolved Age Notes LastModified by Organization Details LastModified Time Father Heart disease [email or web address] Not available 05/06 11:27:48 Father Hypertensive disorder [email or web address] Not available 05/06 11:28:03 Mother Malignant neoplasm of lung [email or web address] Not available 05/06 11:28:46 Medical History Condition Response Coronary Artery Disease N Other N High Blood Pressure N Atrial Fibrillation N Thyroid Problems N Kidney or Bladder Problems N GI Problems N Depression N COPD N Blood Clots N Skin Problems N Eating Disorder N Anemia N Heart Attack ([place]) N Anxiety Disorder N Diabetes N Muscle, Joint, or Bone Problems N Seizures/Epilepsy N Acid Reflux (GERD) N Cancer N Stroke N Asthma N Allergies N ADHD N Substance Abuse N High Cholesterol N Hepatitis N Liver Disease N Schizophrenia N Headaches N Heart Failure N Osteoporosis N Gynecological History Statement/Question Response Date of Last Pap Smear Date of Last Mammogram Obstetrics History GPAL:G 0 P 0 0 0 0 Past Encounters Encounter ID Performer Location Encounter Start Date Encounter Closed Date Diagnosis/Indication Diagnosis SNOMED-CT Code Diagnosis ICD10 Code Diagnosis IMO Codes Diagnosis Note [id number] Yoan Woodall MD [facility] [address] [place] [address] 05/24/2017 10:53:46 05/24/2017 12:12:58 Disorder of lacrimal gland 30181739 H04.19 [id number] Yoan Woodall MD [facility] [address] [place] [address] 06/13/2017 16:33:45 06/13/2017 17:36:33 Seasonal allergic rhinitis 785282501 J30.2 Disorder o f lacrimal gland 16206642 H04.19 [id number] Bryant Carvajal PA-C [facility] [address] [place] [address] 07/23/2019 10:50:15 07/24/2019 07:48:16 Disorder of lacrimal gland 68157371 H04.19 Acute dacr yocystitis of left lacrimal sac 1065653616 77221 H04.831 [id number] Yoan Woodall MD [facility] [address] [place] [address] 01/23/2020 09:46:56 01/23/2020 14:29:24 Benign paroxysmal positional vertigo 752976083 H81.11 Essential hypertension 98148852 I10 [id number] Yoan Woodall MD [facility] [address] [place] [address] 04/28/2021 09:34:14 04/28/2021 10:57:56 Serous otitis media 33926077 H65.03 [id number] Yoan Woodall MD [facility] [address] [place] [address] 05/10/2021 11:34:31 05/10/2021 12:39:06 Essential hypertension 69303447 I10 Impacted c erumen in right ear 7397585423 982090 H61.21 [id number] Yoan Woodall MD [facility] [address] [place] [address] 05/17/2021 11:09:49 05/17/2021 11:40:41 Screening for malignant neoplasm of colon 640436683 Z12.11 Body mass index 20-24 - normal 946113732 Z68.20 Bilateral cataracts 9572 2003 H25.554 [id number] Bryant Carvajal PA-C [facility] [address] [place] [address] 11/01/2021 13:58:13 11/01/2021 14:39:41 New daily persistent headache 5178601294 04120 G44.52 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 Blurring o f visual image 673371813 H53.8 [id number] DEVI Godwin [address] [place] [address] 06/13/2022 10:49:17 06/19/2022 13:32:33 Essential hypertension 17882437 I10 Overweight 802410336 E66 .3 [id number] Yoan Woodall MD [facility] [address] [place] [address] 06/12/2023 11:09:26 06/13/2023 12:33:30 Pain in pelvis 08411313 R10.2 Abdominal pain 86540324 R10.13 Nausea and vomiting 1693 2000 R11.2 Essential hypertension 29025791 I10 Underweight 608308277 R6 3.6 [id number] Yoan Woodall MD [facility] [address] [place] [address] 07/13/2023 11:38:54 07/14/2023 11:51:31 Abdominal pain 38232053 R10.13 Essential hypertension 35699961 I10 [id number] Yoan Woodall MD [facility] [address] [place] [address] 08/07/2023 16:58:26 08/10/2023 14:23:46 Obstruction of pelviureteric junction 53320496 N13.5 Low back pain 518085104 M54.51 Postmenopa usal osteoporosis 541258851 M81.0 Pulmonary emphysema 8743 3001 J43.1 Essential hypertension 16588259 I10 [id number] Bryant Carvajal PA-C [facility] [address] [place] [address] 10/30/2023 10:19:31 11/06/2023 14:35:02 Calculus of kidney and ureter 096787045 N20.2 Underweight 219995976 R6 3.6 [id number] Yoan Woodall MD [facility] [address] [place] [address] 12/31/2023 14:11:07 01/08/2024 12:03:49 Osteoporosis 89348583 M81.0 Underweight 937290859 R6 3.6 [id number] Yoan Woodall MD [facility] [address] [place] [address] 08/12/2024 14:11:53 08/13/2024 11:49:55 Essential hypertension 93196647 I10 Abdominal discomfort 433 83896 R10.9 R10.84 221345 Urinary tr act obstruction 2349083 N28.89 0062887732 Underweight 134307987 R6 3.6 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 2780 Postmenopa usal osteoporosis 628633997 M81.0 2201 [id number] Yoan Woodall MD [facility] [address] [place] [address] 08/26/2024 16:12:20 08/27/2024 10:13:24 Dysuria 43959796 R30.0 39612 Essential hypertension 70127993 I10 99967 high today possibly due to illness today..li l recheck next week Underweight 232947556 R6 3.6 [id number] Yoan Woodall MD [facility] [address] [place] [address] 10/07/2024 14:17:29 10/08/2024 17:58:35 Lower esophageal ring 751528478 K22.2 8229 Urinary tr act obstruction 8513170 N28.89 6577316628 Body mass index less than 16.5 046723171 Z68.1 37393922 [id number] Yoan Woodall MD [facility] [address] [place] [address] 11/04/2024 14:52:31 11/07/2024 17:14:45 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 2780 go to ER vs hypoxia Health Concerns Section Related Observation LastModified by Organization Detai ls LastModified Time None Recorded Concern Status LastModified by Organization Details LastModified Time None Recorded Advance Directives Directive None Recorded Payers Insurance Date Sequence Insurance Name Policy Number Policy Willson Covered Member ID Willson Member ID Guarantor Name 10/06/2024 [place] Melodye A Zheng [id number] Melodye Zheng 08/12/2024 [place] Melodye A Zheng [id number] Melodye Zheng 10/06/2024 1 [place] Melodye A Zheng [id number] Melodye Zheng 11/07/2024 2 [place] [id number] Edgar Zheng [id number] Edgar Zheng Notes Date Note Type Note Provider Name and Address Organization Details Recorded Time 12/31/2023 text/html ROS as noted in the HPI here for bone density results...osteop orosis...has not ever used anything.. Bryant Carvajal PA-C Attn: Accounting,[address] [place], [address], [facility] 12/31/2023 14:40:33 08/12/2024 text/html ROS as noted in the HPI stomach pains..gas..naus ea while eating..no heartburn..lunch meat and processed foot..fried foods do not make her sick..nausea first then pain low and across above pelvis...has developed constipation...a lso needs refills..htn is well controlled..ana mendez had a scope done..also has a hx of a blocked kidney... Bryant Carvajal PA-C Attn: Accounting,[address] [place], [address], [facility] 08/12/2024 14:48:01 08/26/2024 text/html ROS as noted in the HPI stomach pain back pain..dysuria and no appetite...hx of kidney stones and only one working kidney...has been urinating all day... Bryant Carvajal PA-C Attn: Accounting,[address] [place], [address], [facility] 08/26/2024 16:56:13 10/07/2024 text/html ROS as noted in the HPI follow up from GI note...shatzki ring and hiatal hernia and low acid diet Bryant Carvajal PA-C Attn: Accounting,[address] [place], [address], [facility] 10/07/2024 15:11:18 11/04/2024 text/html ROS as noted in the HPI pre surg phys vs kidney disease..repair of blockage of kidney to improve renal function..no hx of cardiac complication..hx of emphysema...89 pulse ox..has reduced cigs from 1 to 1/2 pack per day.. Bryant Carvajal PA-C Attn: Accounting,[address] [facility], [place], [address], [facility] 11/04/2024 15:45:24 OBGyn Episode No OBEpisode recorded.
--- OUTSIDE RECORDS SUMMARY | 2024-11-09 21:02 | XMS_ITS | Encounter Summary ---
Author Organization [facility] Address [address] [place] [address] Phone Care Team Providers Care Brake Operator Name Role Phone Don Carvajal Primary Care Provider Mitzi Miller APRN, DECISION SUPPORT MANAGER Unavailable Chong Cordova MD Unavailable [phone] Encounter Details Date Type Department Care Team (Late st Contact Info) Description 11/23/2023 Telephone [facility] [address] [place] [address] Chong Cordova MD [address] [address] Social History Tobacco Use Types Packs/Day Years Used Date Smoking Tobacco: Every Day Cigarettes Smokeless Tobacco: Former Quit: 05/06/2012 Alcohol Use Standard Drinks/Week Comments Yes 0 (1 standard drink = 0.6 oz pur e alcohol) Few times a week Sexually Active Control Partners Comments Not Currently Comments No Sex and Gender Information Value Date Recorded Sex Assigned at Not on file Legal Sex Female 9:52 AM CDT Gender Identity Not on file Sexual Orientation Not on file documented as of this encounter Miscellaneous Notes * Telephone Encounter - Awilda Hernnadez - 11/23/2023 2:22 PM CDT Pt scheduled. * Telephone Encounter - Awilda Hernandez - 11/23/2023 2:18 PM CDT Left message for pt to call back. * Telephone Encounter - Chong Cordova MD - 11/23/2023 11:04 AM CDT OV with me in 2-4 weeks please documented in this encounter Plan of Treatment Upcoming Encounters Date Type Department Care Team (Late st Contact Info) Description 11/11/2024 1:30 AM CDT Appointment [facility] [address] [place] [address] Yamile Abel, RN [place] 11/12/2024 11:30 AM CDT Appointment [facility] [address] [place] [address] Nidhi Sharpe, [place] 11/13/2024 2:30 AM CDT Appointment [facility] Sched[facility] [address] [facility] [place] [place] [address] Heidi Little, OT documented as of this encounter Visit Diagnoses Not on filedocumented in this encounter Additional Health Concerns Infection Onset Date Last Indicated Resolved Time Respiratory Rule-Out 11/04/2024 11/04/2024 025 11:21 PM CDT documented as of this encounter Care Teams Brake Operator Relationship Specialty Start Date End Date Don Carvajal PAC [address] [place] [address] PCP - General Physician Cavity Pump Operator 05/18/16 Mitzi Miller APRN, DECISION SUPPORT MANAGER [address] [place] [address] Nurse Practitioner Advanced Practice Nurse 07/23/23 Chong Cordova MD [address] [facility], [address] [address] Consulting Physician Urology 09/11/23 documented as of this encounter
--- OUTSIDE RECORDS SUMMARY | 2024-11-09 21:02 | XMS_ITS | Encounter Summary ---
Author Organization [facility] Address [address] [place] [address] Phone Care Team Providers Care Propulsion Systems Engineer Name Role Phone Don Carvajal Primary Care Provider Mitzi Miller APRN, ARMATURE WINDER REPAIR HELPER Unavailable Chong Cordova MD Unavailable [phone] Encounter Details Date Type Department Care Team (Late st Contact Info) Description 10/30/2023 Telephone [facility] [address] [place] [address] Chong Cordova MD [address] [address] Social History Tobacco Use Types Packs/Day Years [...] Miscellaneous Notes * Telephone Encounter - Awilda Hernandez - 10/31/2023 9:09 AM CDT Pt scheduled for Sunday11-02-2023 * Telephone Encounter - Chong Cordova MD - 10/30/2023 1:37 PM CDT PLEASE MAKE OV FOR THIS PATIENT WITH ME SOON POSSIBLE. documented in this encounter Plan of Treatment Upcoming Encounters Date Type Department Care Team (Late st Contact Info) Description 11/11/2024 1:30 AM CDT [facility] [address] [place] [address] Yamile Abel, RN [place] 11/12/2024 11:30 AM CDT Appointment [facility] [address] [place] [address] Nidhi Sharpe, PT [place] 11/13/2024 2:30 AM CDT [facility]ointment [facility] [address] [facility] [place] [id number] Heidi Little OT documented as of this encounter Visit Diagnoses Not on filedocumented in this encounter Additional Health Concerns Infection Onset Date Last Indicated Resolved Time Respiratory Rule-Out 11/04/2024 11/04/2024 025 11:21 PM CDT documented as of this encounter Care Teams Propulsion Systems Engineer Relationship Specialty Start Date End Date Don Carvajal PAC [address] [place] [address] PCP - General Physician Nuclear Security Officer 05/18/16 Mitzi Miller APRN, ARMATURE WINDER REPAIR HELPER [address] [place] [address] Nurse Practitioner Advanced Practice Nurse 07/23/23 Chong Cordova MD [address] [place] [address] Consulting Physician Urology 09/11/23 documented as of this encounter
--- OUTSIDE RECORDS SUMMARY | 2024-11-09 21:02 | XMS_ITS | Clinical Summary ---
Author Organization [facility] Address [address] [place] [address] Phone Care Team Providers Care Buckle Sorter Name Role Phone Don Carvajal Primary Care Provider [phone] Mitzi Miller APRN, INDEPENDENT DISTRIBUTOR Unavailable Chong Cordova MD Unavailable [phone] Allergies Active Allergy Reactions Criticality Noted Date Comments Codeine Vomiting 05/08/2016 Medications amLODIPine (NORVASC) 5 MG Tablet Take 5 mg by mouth daily. Active omeprazole (PriLOSEC) 40 MG CAPSULE DELAYED RELEASE Take 1 Capsule by mouth daily. 90 Capsule 025 Active albuterol (PROVENTIL, VENTOLIN) (2.5 MG/3ML) 0.083% Nebulizer SolnIndications :COPD exacerbation 3 mL by Nebulization route every 6 hours as needed for Wheezing or Shortness of Breath. 360 mL 025 Active azithromycin (ZITHROMAX) 500 MG TabletIndicatio ns:Respiratory Tract Infection Take 1 Tablet by mouth three times a week for 7 doses. Indications: Infection of the Respiratory Tract 7 Tablet 025 2024 Active guaiFENesin (MUCINEX) 600 MG TABLET SR 12 HR Take 1 Tablet by mouth 2 times daily. 180 Tablet Active ondansetron (ZOFRAN-ODT) 4 MG TABLET DISPERSIBLE Take 1 Tablet by mouth every 6 hours as needed for Nausea - 1st line. 10 Tablet Active polyethylene glycol (GLYCOLAX, MIRALAX) 17 g PackIndications :Constipation Take 1 Packet by mouth 2 times daily as needed for Constipation - 1st line. Dissolve in 4-8 oz of liquid. Indications: Constipation 90 Packet Active predniSONE (DELTASONE) 20 MG Tablet Take 2 Tablets by mouth daily (with breakfast) for 5 doses. 10 Tablet 025 2024 Active aspirin EC (Aman Aspirin EC Low Dose) 81 MG Tablet Delayed Response Take 81 mg by mouth daily. 2024 Discontinued(T herapy completed) acetaminophen (TYLENOL) 500 MG Tablet Take 500 mg by mouth every 6 hours as needed for Pain. OTC caps.Takes one in am and two at HS 017 2024 Discontinued(T herapy completed) pantoprazole (PROTONIX) 40 MG Tablet Delayed Response Take 1 Tablet by mouth daily. 30 Tablet 024 2024 Discontinued(T herapy completed) calcitonin, salmon, (FORTICAL;MIACA LCIN) 200 UNIT/ACT Solution 2 Sprays by Nasal route daily. 2024 Discontinued(T herapy completed) famotidine (PEPCID) 20 MG Tablet Take 20 mg by mouth 2 times daily. 2024 Discontinued(T herapy completed) omeprazole (PriLOSEC) 40 MG CAPSULE DELAYED RELEASE Take 40 mg by mouth daily. 2024 Discontinued Active Problems Problem Noted Date Diagnosed Date Acute respiratory failure with hypoxia Tobacco dependence 11/05/2024 GERD (gastroesophageal reflux disease) COPD exacerbation 11/04/2024 Hydronephrosis of left kidney 09/30/2024 Protein calorie malnutrition 09/30/2024 Abdominal pain 09/30/2024 Renal calculi 09/30/2024 Severe protein-calorie malnutrition 09/30/2024 Obstruction of left ureteropelvic junction (UPJ) 09/29/2024 HTN (hypertension), benign 05/11/2016 Closed fracture of neck of right femur 7 Overview (05/11/2016): S/P Hemiarthroplasty Gait abnormality 05/11/2016 Closed fracture of neck of right femur with rout ine healing 05/08/2016 Secondary hypertension 05/08/2016 COPD (chronic obstructive pulmonary disease) 04/2016 Acute pain of right hip 05/08/2016 Fall on same level as cause of accidental injury 05/08/2016 Tobacco use 05/08/2016 Encounters Date Type Department Care Team Description 11/04/2024 5:07 PM CDT - 11/07/2024 2:50 PM CDT Hospital Encounter [facility] [address] [place] [id number] Dilip Garcia MD Krishna, Rubne Nye MD Acute respiratory failure with hypoxia [place] Dis[place] [facility] [place] [facility] [place] Travel 10/13/2024 Telephone [facility] [address] [place] [address] Chong Cordova MD 09/29/2024 5:53 PM CDT - 10/01/2024 12:42 PM CDT Hospital Encounter [facility] [address] [phone] Dilip Garcia MD [facility], MD Sienna Whitehead Behfar, MD Hydronephrosis of left kidney Discharge Disposition: Discharged to home or Selfcare 09/29/2024 Travel from Last 3 Months Immunizations Immunization Administration Dates Next Due TB Skin Test 05/11/2016 Family History Medical History Relation Name Comments Heart Attack Father Cancer Mother Relation Name Status Comments Father Mother Social History Tobacco Use Types Packs/Day Years Used Date Smoking Tobacco: Every Day Cigarettes Smokeless Tobacco: Former Quit: 05/06/2012 Tobacco Cessation:Ready to Q uit: Not Asked; Counseling Given: Not Answered Alcohol Use Standard Drinks/Week Comments Yes 0 (1 standard drink = 0.6 oz pur e alcohol) Few times a week Social Connection and Isolation Panel Answer Date Recorded In a typical week, how many times do you talk on the phone with family, friends, or neighbors? Patient declined 11/04/2024 How often do you get togethe r with friends or relatives? Patient declined 11/04/2024 How often do you attend scientology or rastafarian serv ices? Patient declined 11/04/2024 Do you belong to any clubs o r organizations such as scientology groups, unions, fraternal or athletic groups, or school groups? Patient declined 11/04/2024 How often do you attend meet ings of the clubs or organizations you belong to? Patient declined 11/04/2024 Are you , , di vorced, , never , or living with a partner? Patient declined 11/04/2024 AUDIT-C Answer Date Recorded Q1: How often do you have a drink containing alc ohol? Patient declined 11/04/2024 Q2: How many drinks containi ng alcohol do you have on a typical day when you are drinking? Patient declined 11/04/2024 Q3: How often do you have si x or more drinks on one occasion? Patient declined 11/04/2024 Overall Financial Resource Strain (CARDIA) Answe r Date Recorded How hard is it for you to pa y for the very basics like food, housing, medical care, and heating? Patient declined 11/04/2024 [facility] - Occupational Stress Questionnaire Answer Date Recorded Do you feel stress - tense, restless, nervous, or anxious, or unable to sleep at night because your mind is troubled all the time - these days? Patient declined 11/04/2024 Exercise Vital Sign Answer Date Recorde d On average, how many days pe r week do you engage in moderate to strenuous exercise (like a brisk walk)? Patient declined On average, how many minutes do you engage in exercise at this level? Patient declined 11/04/2024 Hunger Vital Sign Answer Date Recorded Within the past 12 months, y ou worried that your food would run out before you got the money to buy more. Patient declined Within the past 12 months, t he food you bought just didn't last and you didn't have money to get more. Patient declined PRAPARE - Transportation Answer Date Re corded In the past 12 months, has l ack of transportation kept you from medical appointments or from getting medications? Patient declined 11/04/2024 In the past 12 months, has l ack of transportation kept you from meetings, work, or from getting things needed for daily living? Patient declined 11/04/2024 Housing Stability Vital Sign Answer Dave e Recorded In the last 12 months, was t here a time when you were not able to pay the mortgage or rent on time? Patient declined 11/05/19 25 In the past 12 months, how m any times have you moved where you were living? 0 11/04/2024 At any time in the past 12 m [facility], were you homeless or living in a correction (including now)? Patient declined 11/04/2024 [facility] Utilities Answer Date Recorded In the past 12 months has th e electric, gas, oil, or water company threatened to shut off services in your home? Patient declined 11/04/2024 Sexually Active Control Partners Comments Not Currently Comments No Sex and Gender Information Value Date Recorded Sex Assigned at Not on file Legal Sex Female 9:52 AM CDT Gender Identity Not on file Sexual Orientation Not on file Last Filed Vital Signs Vital Sign Reading Time Taken Comments Blood Pressure 126/58 11/07/2024 12:44 PM CDT Pulse 72 11/07/2024 12:44 PM CDT Temperature 36.4 C (97.6 F) 11/07/2024 12:44 PM CDT Respiratory Rate 18 11/07/2024 12:44 PM CDT Oxygen Saturation 90% 11/07/2024 12:44 PM CDT Inhaled Oxygen Concentration - - Weight 39.6 kg (87 lb 4.8 oz) 11/04/2024 11:56 P M CDT Height 160 cm (5' 3) 11/04/2024 11:56 PM CDT Body Mass Index 15.46 11/04/2024 11:56 PM CDT Plan of Treatment Upcoming Encounters Date Type Department Care Team (Late st Contact Info) Description 11/11/2024 1:30 AM CDT Appointment [facility] [address] [address] Yamile Abel, [place] 11/12/2024 11:30 AM CDT [facility] [address] [place] [address] Nidhi Sharpe, PT [place] 11/13/2024 2:30 AM CDT Appointment [facility] [address] [place] [address] Heidi Little OT Health Maintenance Due Date Last Done Comments Hepatitis C Virus (HCV) Screening 1945 TdaP Immunization 1945 Pneumococcal Immunization (5 0+ years) (1 of 2 - PCV) 1965 Zoster Immunization (1 of 2) 1996 Medicare Initial AWV G0438 06/05/2008 Respiratory Syncytial Virus (RSV) Immunization (Adult) (1 - 1-dose 75+ series) 2021 Influenza Immunization (#1) 2024 SARS-COV-2 Immunization ( season) 2024 DEXA Bone Density 12/24/2025 12/25/2023 Hepatitis B Immunization Aged Out No longer eligible based on patient's age to complete this topic Human Papillomavirus (HPV) Immunization Aged Out No longer eligible b ased on patient's age to complete this topic Meningococcal Immunization (ACWY) Aged Out No longer eligible based on patient's age to complete this topic Rotavirus Immunization Aged Out No lo nger eligible based on patient's age to complete this topic Medical Devices Implanted Type Area Internet Media Planner Device Identifier Shelf Expiration Date Model / Serial / Lot Stem Fem Profem Plsm Z 4 - [id number] Implanted:Qty : 1 on 05/08/2016 by Jesus Ndiaye MD at [facility] IMPLANT Right: Hip [employer] 01/10/2024 [id number] / / [id number] Profemur Plus Cocr Neck A/R 8 Short - [id number] Implanted:Qty : 1 on 05/08/2016 by Jesus Ndiaye MD at [facility] IMPLANT Right: Hip [employer] 03/13/2024 [id number] / / [id number] Gladiator Bipolar 48mm - [id number] Implanted:Qty : 1 on 05/08/2016 by [facility] IMPLANT Right: Hip [employer] 07/04/2022 [id number] / / [id number] Femoral Head 32mm, Implanted:Qty : 1 on 05/08/2016 by Jesus Ndiaye MD at [facility] Right: Hip [employer] 08/04/2017 [id number] / / [id number] Procedures Procedure Name Priority Date/Time Associated Diagnosis Comments CBC WITH AUTO DIFFERENTIAL Routine 11/07/2024 6:11 AM CDT COMPLETE BLOOD COUNT (CBC) WITH DIFF Routine 11/07/2024 6:11 AM CDT BASIC METABOLIC PANEL W/ CALCIUM TOTAL Routine 11/07/2024 6:11 AM CDT CBC WITH AUTO DIFFERENTIAL Routine 11/06/2024 6:07 AM CDT COMPLETE BLOOD COUNT (CBC) WITH DIFF Routine 11/06/2024 6:07 AM CDT BASIC METABOLIC PANEL W/ CALCIUM TOTAL Routine 11/06/2024 6:07 AM CDT CBC WITH AUTO DIFFERENTIAL Routine 11/05/2024 6:35 AM CDT COMPLETE BLOOD COUNT (CBC) WITH DIFF Routine 11/05/2024 6:35 AM CDT BASIC METABOLIC PANEL W/ CALCIUM TOTAL Routine 11/05/2024 6:35 AM CDT AEROSOL NEBULIZER-INITIAL Routine 11/05/2024 12:55 AM CDT RHYTHM STRIP 11/05/2024 12:00 AM CDT RHYTHM STRIP 11/05/2024 12:00 AM CDT RSV,SARS-COV-2,INF LUENZA A&B BY PCR STAT 11/04/2024 10:30 PM CDT AEROSOL NEBULIZER-INITIAL STAT 11/04/2024 7:22 PM CDT CRITICAL CARE Routine 11/04/2024 6:49 PM CDT TROPONIN I, HIGH SENSITIVITY (HSTRP) STAT 11/04/2024 6:22 PM CDT XR CHEST 2 VIEWS STAT 11/04/2024 5:40 PM CDT EKG 12 LEAD STAT 11/04/2024 5:26 PM CDT CBC WITH AUTO DIFFERENTIAL STAT 11/04/2024 5:11 PM CDT N-TERMINAL- PRO B TYPE NATRIURETIC PEPTIDE STAT 11/04/2024 5:11 PM CDT TROPONIN I, HIGH SENSITIVITY (HSTRP) STAT 11/04/2024 5:11 PM CDT CMP (COMPREHENSIVE METABOLIC PANEL) STAT 11/04/2024 5:11 PM CDT COMPLETE BLOOD COUNT (CBC) WITH DIFF STAT 11/04/2024 5:11 PM CDT EKG SCAN 11/04/2024 12:00 AM CDT EKG SCAN 11/04/2024 12:00 AM CDT RHYTHM STRIP 11/04/2024 12:00 AM CDT CBC WITH AUTO DIFFERENTIAL Routine 10/01/2024 6:34 AM CDT COMPLETE BLOOD COUNT (CBC) WITH DIFF Routine 10/01/2024 6:34 AM CDT BASIC METABOLIC PANEL W/ CALCIUM TOTAL Routine 10/01/2024 6:34 AM CDT NM RENAL FUNCTION FLOW WTH PHARM Routine 09/30/2024 2:01 PM CDT CBC WITH AUTO DIFFERENTIAL Routine 09/30/2024 5:28 AM CDT COMPLETE BLOOD COUNT (CBC) WITH DIFF Routine 09/30/2024 5:28 AM CDT BASIC METABOLIC PANEL W/ CALCIUM TOTAL Routine 09/30/2024 5:[address] ABDOMEN PELVIS W/ CONTRAST Stat with Interpretation 09/29/2024 7:36 PM CDT URINALYSIS REFLEX IF INDICATED BY ABNORMAL RESULTS STAT 09/29/2024 7:05 PM CDT CRITICAL CARE Routine 09/29/2024 6:38 PM CDT GOLD TOP TUBE STAT 09/29/2024 6:30 PM CDT BLUE TOP TUBE STAT 09/29/2024 6:30 PM CDT CBC WITH AUTO DIFFERENTIAL STAT 09/29/2024 6:30 PM CDT EXTRA TUBES STAT 09/29/2024 6:30 PM CDT LIPASE STAT 09/29/2024 6:30 PM CDT COMPLETE BLOOD COUNT (CBC) WITH DIFF STAT 09/29/2024 6:30 PM CDT CMP (COMPREHENSIVE METABOLIC PANEL) STAT 09/29/2024 6:30 PM CDT SHIREEN BONE DENSITOMETRY AXIAL SKELETON Routine 12/25/2023 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 WBC 10.14 4.00 - 12.00 10(3)/mcL 11/07/2024 6:29 AM CDT [facility] RBC 4.37 3.80 - 5.30 10(6)/mcL 11/07/2024 6:29 AM CDT [facility] HEMOGLOBIN (HGB) 13.9 12.0 - 15.8 g/dL 11/07/2024 6:29 AM CDT [facility] HEMATOCRIT (HCT) 41.3 36.0 - 47.0 % 11/07/2024 6:29 AM CDT [facility] MCV 94.5 82.0 - 96.0 fL 11/07/2024 6:29 AM CDT [facility] MCH 31.8 26.0 - 34.0 pg 11/07/2024 6:29 AM CDT [facility] MCHC 33.7 31.0 - 36.0 g/dL 11/07/2024 6:29 AM CDT [facility] PLATELET COUNT 331 140 - 440 10(3)/mcL 11/07/2024 6:[address] [facility] RDW 12.1 11.8 - 15.5 % 11/07/2024 6:[address] [facility] MPV 9.1(L) 9.7 - 12.4 fL 11/07/2024 6:[address] [facility] NEUTROPHILS 63.5 47.0 - 73.0 % 11/07/2024 6:[address] [facility] LYMPHOCYTES 28.1 18.0 - 42.0 % 11/07/2024 6:[address] [facility] MONOCYTES 7.8 4.0 - 12.0 % 11/07/2024 6:[address] [facility] EOSINOPHILS 0.1 0.0 - 5.0 % 11/07/2024 6:[address] [facility] BASOPHILS 0.2 0.0 - 1.0 % 11/07/2024 6:29 AM CDT [facility] IMMATURE GRANULOCYTE 0.3 0.0 - 0.4 % 11/07/2024 6:[address] [facility] ABSOLUTE NEUTROPHILS 6.44 1.60 - 7.70 10(3)/mcL 11/07/2024 6:29 AM CDT [facility] ABSOLUTE LYMPHOCYTES 2.85 1.30 - 3.20 10(3)/mcL 11/07/2024 6:29 AM CDT [facility] ABSOLUTE MONOCYTES 0.79 0.20 - 1.00 10(3)/mcL 11/07/2024 6:29 AM CDT [facility] ABSOLUTE EOSINOPHIL 0.01 0.00 - 0.40 10(3)/mcL 11/07/2024 6:29 AM CDT [facility] ABSOLUTE BASOPHILS 0.02 0.00 - 0.10 10(3)/mcL 11/07/2024 6:29 AM CDT [facility] ABSOLUTE IMMATURE GRANULOCYTE 0.03 0.00 - 0.03 10 (3) mcL. 11/07/2024 6:29 AM CDT [facility] NRBC PER 100 WBC 0 11/08/19 6:29 AM CDT [facility] Blood Venipuncture / Unknown 11/07/2024 6:11 AM CDT 11/07/2024 6:23 AM CDT us Ruben Valente MD HEMATOLOGY ORDERABLES Fi nal Result [facility] [address] [place] [address] * (ABNORMAL) BMP with Ca, Total (11/07/2024 6:11 AM CDT) Only the most recent of5 resultswithin the time period is included. SODIUM 137 136 - 145 mmol/L 11/07/2024 6:43 AM CDT [facility] POTASSIUM 3.5 3.5 - 5.1 mmol/L 11/07/2024 6:43 AM CDT [facility] CHLORIDE 100 98 - 107 mmol/L 11/07/2024 6:[address] [facility] CO2, VENOUS 29 22 - 30 mmol/L 11/07/2024 6:43 AM CDT [facility] ANION GAP 11.5 <18.0 mmol/L 11/07/2024 6:[address] [facility] GLUCOSE 78 70 - 99 mg/dL 11/07/2024 6:[address] [facility] BUN 21(H) 10 - 20 mg/dL 11/07/2024 6:[address] [facility] CREATININE, BLOOD 0.59(L) 0.60 - 1.00 mg/dL 11/07/2024 6:[address] [facility] BUN/CREATININE RATIO 36(H) 12 - 20 ratio 11/07/2024 6:[address] [facility] CALCIUM 9.2 8.7 - 10.5 mg/dL 11/07/2024 6:[address] [facility] GFR, ESTIMATED >60 >=60 11/07/2024 6:[address] [facility] Comment: Creatinine Clearance is the preferred criteria for selecting drug dose adjustments in renally impaired patients. The GFR is provided as additional pertinent clinical information. GFR is reported in mL/min/1.73 sq m. Calculation based on the 2020 Chronic Kidney Disease Epidemiology Collaboration (CKD-EPI) equation refit without adjustment for race. GFR, EST. >60 >=60 6:[address] [facility] Comment: Creatinine Clearance is the preferred criteria for selecting drug dose adjustments in renally impaired patients. The GFR is provided as additional pertinent clinical information. GFR is reported in mL/min/1.73 sq m. Calculation based on the 2009 Chronic Kidney Disease Epidemiology Collaboration (CKD-EPI). GFR, EST. NONAFRICAN >60 >=60 11/07/2024 6:[address] [facility] Comment: Creatinine Clearance is the preferred criteria for selecting drug dose adjustments in renally impaired patients. The GFR is provided as additional pertinent clinical information. GFR is reported in mL/min/1.73 sq m. Calculation based on the 2009 Chronic Kidney Disease Epidemiology Collaboration (CKD-EPI). Blood Venipuncture / Unknown 11/07/2024 6:11 AM CDT 11/07/2024 6:22 AM CDT us Ruben Valente MD CHEMISTRY ORDERABLES Fin al Result [facility] [address] [place] [address] * RHYTHM STRIP (11/05/2024 12:00 AM CDT) Only the most recent of3 resultswithin the time period is included. 11/05/2024 us Provider Scan IMG ECG ORDERABLES Final Result Performing Organization Address City/[facility]/ZIP Co de Phone Number RESULTING AGENCY * RSV,SARS-COV-2,INFLUENZA A&B BY PCR (11/04/2024 10:30 PM CDT) FLU A Negative Negative, Error 11/04/2024 11:21 PM CDT [facility] FLU B Negative Negative 11/04/2024 11:21 PM CDT [facility] RESP SYNC VIRUS Negative Negative 11:21 PM CDT [facility] SARSCOV2 NOT DETECTED (Reference Range for this test is Not Detected) 11/04/2024 11:21 PM CDT [facility] Comment:This test was perfor med by a Reverse Guest Experience Representative PCR Method. Nasal NASOPHARYNGEAL STRUCTURE / Unknown Non-Phlebotomy Collection / Unknown 11/04/2024 10:30 PM CDT 11/04/2024 10:41 PM CDT us Dilip Garcia MD MICROBIOLOGY - GENERAL OR DERABLES Final Result [facility] [address] [place] [address] * Critical Care (11/04/2024 6:49 PM CDT) Narrative Dilip Garcia MD - 11/04/2024 6:49 PM CDT Dilip Garcia MD 11/05/2024 3:25 AM Critical Care Performed by: Dilip Garcia MD Authorized by: Dilip Garcia MD Critical care provider statement: Critical care time (minutes): 35 Critical care time was exclusive of: Separately billable procedures and treating other patients Critical care was necessary to treat or prevent imminent or life-threatening deterioration of the following conditions: Respiratory failure Critical care was time spent personally by me on the following activities: Development of treatment plan with patient or surrogate, obtaining history from patient or surrogate, examination of patient, evaluation of patient's response to treatment, ordering and performing treatments and interventions, ordering and review of laboratory studies, ordering and review of radiographic studies, pulse oximetry, re-evaluation of patient's condition and review of old charts I assumed direction of critical care for this patient from another provider in my specialty: no Care discussed with: admitting provider us Dilip Garcia MD PROCEDURE/MINOR SURGICAL ORDERABLES Final Result * TROPONIN I, HIGH SENSITIVITY (HSTRP) (11/04/2024 6:22 PM CDT) Only the most recent of2 resultswithin the time period is included. TROPONIN I, HIGH SENSITIVITY- [place] 8.3 <=14.0 ng/L 11/04/2024 6:57 PM CDT [facility] Comment: High-sensitivity troponin I results are reported in ng/L making the result appear to be 1,000 times higher than the contemporary troponin I value which is reported in ng/ml. Results from [place]. Blood Venipuncture / Unknown 11/04/2024 6:22 PM CDT 11/04/2024 6:31 PM CDT us Juan J Boone MD CHEMISTRY ORDERABLES F inal Result [facility] [address] [place] [address] * XR CHEST 2 VIEWS (11/04/2024 5:40 PM CDT) Anatomical Region Laterality Modality Chest N/A Digital Radiogra phy 11/04/2024 6:00 PM CDT Narrative 11/04/2024 6:00 PM CDT DICTATING PHYSICIAN: Kervin Swain M.D. PROCEDURE: XR CHEST 2 VIEWS INDICATION: Shortness of breath, Cough, and headaches for a few days. Hypoxia. History of COPD and emphysema. Smoker. TECHNIQUE: PA and lateral chest radiographs. 2 views submitted. COMPARISON: CT abdomen pelvis 09/29/2024, chest x-ray 05/08/2016 FINDINGS: Aortic calcifications. The cardiomediastinal silhouette is normal size. Calcified right paratracheal lymph node consistent with remote granulomatous disease. The pulmonary veins do not appear redistributed. Diffuse lung hyperinflation with coarsening of the interstitial markings consistent with provided history of COPD and emphysema. No focal lung consolidation, mass, pleural effusion, or pneumothorax are seen. The bones are diffusely demineralized, decreasing sensitivity and specificity of evaluation of the osseous structures. Thoracic spondylosis. CONCLUSION: Findings consistent with COPD. No focal consolidation or pleural effusions. Procedure Note Kervin Swain MD - 11/04/2024 DICTATING PHYSICIAN: Kervin Swain M.D. PROCEDURE: XR CHEST 2 VIEWS INDICATION: Shortness of breath, Cough, and headaches for a few days.Hypoxia. History of COPD and emphysema. Smoker. TECHNIQUE: PA and lateral chest radiographs. 2 views submitted. COMPARISON: CT abdomen pelvis 09/29/2024, chest x-ray 05/08/2016 FINDINGS: Aortic calcifications. The cardiomediastinal silhouette is normal size.Calcified right paratracheal lymph node consistent with remotegranulomatous disease. The pulmonary veins do not appear redistributed.Diffuse lung hyperinflation with coarsening of the interstitial markingsconsistent with provided history of COPD and emphysema. No focal lungconsolidation, mass, pleural effusion, or pneumothorax are seen. The bonesare diffusely demineralized, decreasing sensitivity and specificity ofevaluation of the osseous structures. Thoracic spondylosis. CONCLUSION: Findings consistent with COPD. No focal consolidation or pleuraleffusions. us Juan J Boone MD IMG DIAGNOSTIC ORDERAB LES Final Result * EKG 12 LEAD (11/04/2024 5:26 PM CDT) Ventricular Rate 79 BPM EXTERNAL EKG Atrial Rate 79 BPM EXTERNAL EKG P-R Interval 138 ms EXTERNAL EKG QRS Duration 74 ms EXTERNAL EKG Q-T Duration 394 ms EXTERNAL EKG QTC CALCULATION 451 ms EXTERNAL EKG P Lindsay 86 degrees EXTERNAL EKG R Lindsay 7 degrees EXTERNAL EKG T Lindsay 62 degrees EXTERNAL EKG 11/04/2024 5:26 PM CDT Impressions EXTERNAL EKG - 11/06/2024 4:04 PM CDT Normal sinus rhythm Septal infarct (cited on or before 30-OCT-2023) Abnormal ECG When compared with ECG of 30-OCT-2023 12:17, No significant change was found Confirmed by BIRGIT ARAMBULA ([id number]) on 11/06/2024 4:04:33 PM Narrative Procedure Note Birgit Arambula MD - 11/06/2024 IMPRESSION: Normal sinus rhythm Septal infarct (cited on or before 30-OCT-2023) Abnormal ECG When compared with ECG of 30-OCT-2023 12:17, No significant change was found Confirmed by BIRGIT ARAMBULA ([id number]) on 11/06/2024 4:04:33 PM us Juan J Boone MD IMG ECG ORDERABLES Fin al Result EXTERNAL EKG * NT-proBNP (11/04/2024 5:11 PM CDT) NT PROBNP 227.0 <450.0 pg/mL 11/04/2024 6:05 PM CDT [facility] Comment: AGE pg/mL INTERPRETATION All <300 Negative: HF (Heart Failure) unlikely 18 to <50 >=300.0 to <450.0 Indeterminate. Consider other causes of NT-proBNP elevation 50 to 75 >=300.0 to <900.0 Indeterminate. Consider other causes of NT-proBNP elevation >75 >=300.0 to <1800.0 Indeterminate. Consider other causes of NT-proBNP elevation 18 to <50 >=450.0 Positive: HF likely 50 to 75 >=900.0 Positive: HF likely >75 >=1800.0 Positive: HF likely Total protein levels at or above 12.6 mg/dl may falsely decrease NT-proBNP values. Blood Venipuncture / Unknown 11/04/2024 5:11 PM CDT 11/04/2024 5:40 PM CDT us Juan J Boone MD CHEMISTRY ORDERABLES F inal Result [facility] [place] [address] * (ABNORMAL) Comprehensive Metabolic Panel (Cmp) [id number] (11/04/2024 5:11 PM CDT) Only the most recent of2 resultswithin the time period is included. SODIUM 132(L) 136 - 145 mmol/L 11/04/2024 6:[address] [facility] POTASSIUM 4.0 3.5 - 5.1 mmol/L 11/04/2024 6:[address] [facility] CHLORIDE 92(L) 98 - 107 mmol/L 11/04/2024 6:[address] [facility] CO2, VENOUS 27 22 - 30 mmol/L 11/04/2024 6:[address] [facility] ANION GAP 17.0 <18.0 mmol/L 11/04/2024 6:[address] [facility] GLUCOSE 108(H) 70 - 99 mg/dL 11/04/2024 6:[address] [facility] BUN 11 10 - 20 mg/dL 11/04/2024 6:[address] [facility] CREATININE, BLOOD 0.64 0.60 - 1.00 mg/dL 11/04/2024 6:[address] [facility] BUN/CREATININE RATIO 17 12 - 20 ratio 11/04/2024 6:[address] [facility] TOTAL PROTEIN 7.4 6.0 - 8.0 g/dL 11/04/2024 6:01 PM [facility] ALBUMIN 4.3 3.5 - 5.0 g/dL 11/04/2024 6:01 PM [facility] A/G RATIO 1.4 1.0 - 2.2 11/04/2024 6:01 PM [facility] CALCIUM 10.3 8.7 - 10.5 mg/dL 11/04/2024 6:01 PM [facility] T BILI 0.5 0.2 - 1.2 mg/dL 11/04/2024 6:01 PM [facility] SGOT (AST) 20 <43 U/L 11/04/2024 6:01 PM [facility] SGPT (ALT) 14 <56 U/L 11/04/2024 6:01 PM [facility] ALKALINE PHOSPHATASE 103 40 - 150 U/L 11/04/2024 6:01 PM [facility] GFR, ESTIMATED >60 >=60 11/04/2024 6:01 PM [facility] Comment: Creatinine Clearance is the preferred criteria for selecting drug dose adjustments in renally impaired patients. The GFR is provided as additional pertinent clinical information. GFR is reported in mL/min/1.73 sq m. Calculation based on the 2020 Chronic Kidney Disease Epidemiology Collaboration (CKD-EPI) equation refit without adjustment for race. GFR, EST. >60 >=60 025 6:01 PM [facility] Comment: Creatinine Clearance is the preferred criteria for selecting drug dose adjustments in renally impaired patients. The GFR is provided as additional pertinent clinical information. GFR is reported in mL/min/1.73 sq m. Calculation based on the 2009 Chronic Kidney Disease Epidemiology Collaboration (CKD-EPI). GFR, EST. NONAFRICAN >60 >=60 11/04/2024 6:01 PM [facility] Comment: Creatinine Clearance is the preferred criteria for selecting drug dose adjustments in renally impaired patients. The GFR is provided as additional pertinent clinical information. GFR is reported in mL/min/1.73 sq m. Calculation based on the 2009 Chronic Kidney Disease Epidemiology Collaboration (CKD-EPI). Blood Venipuncture / Unknown 11/04/2024 5:11 PM CDT 11/04/2024 5:40 PM CDT us Juan J Boone MD CHEMISTRY ORDERABLES F inal Result [facility] [place] [address] * EKG SCAN (11/04/2024 12:00 AM CDT) Only the most recent of2 resultswithin the time period is included. 11/04/2024 us Provider Scan IMG ECG ORDERABLES Final Result Performing Organization Address City/[facility] Co de Phone Number RESULTING AGENCY * NM RENAL FUNCTION FLOW WTH PHARM (09/30/2024 2:01 PM CDT) Anatomical Region Laterality Modality , Abdomen N/A Nuclear Medicine 09/30/2024 2:21 PM CDT Impressions 09/30/2024 2:23 PM CDT IMPRESSION: 1. Persistent abnormal renogram of the left kidney with continued radiotracer accumulation evidence of obstructive uropathy nonresponsive to Lasix. 2. Right kidney shows features characteristic of mildly dilated and patulous but nonobstructing collecting system. 3. Delayed time to peak of each kidney. 4. Abnormal split function differential, left kidney 35% and right kidney 65%. Narrative 09/30/2024 2:23 PM CDT EXAM DESCRIPTION: NM RENAL FUNCTION FLOW WTH PHARM REASON FOR STUDY: Hydronephrosis for follow-up. RADIOPHARMACEUTICAL: 10.3 mCi Tc-99m MAG3 via a right forearm IV site. TECHNIQUE: After ensuring adequate hydration the patient received intravenous administration of the radiotracer and dynamic flow images were obtained of the bilateral kidneys in posterior projection. Imaging was performed in posterior projection for a total of 45 minutes. Regions of interest were drawn around the kidneys with time activity curves and statistics derived. 40 mg of Lasix IV was administered between 12 and 15 minutes. COMPARISON: 10/04/2023. FINDINGS: There appears to be grossly normal dynamic flow. There is an abnormal split function differential, the left kidney receives 35% in the right kidney 65% of uptake. There is a delayed time to peak of each kidney, the left kidney has an upgoing time activity curve throughout the majority of the examination with a time to peak of 26 minutes. The right kidney has a time to peak of 12.5 minutes (normal less than 10 minutes). The left kidney shows a relative plateau of activity following peak. The right kidney shows some minimal initial excretion and clearance prior to Lasix. Following Lasix, the right kidney diuretic T 1/2 is 9.5 minutes most characteristic of a dilated and patulous but nonobstructing right renal collecting system. Subjectively there is asymmetric retained radiotracer within a prominent dilated left renal pelvis. THIS IS AN ELECTRONICALLY VERIFIED FINAL REPORT 09/30/2024 2:21 PM - Electronically signed by Lorne Khalil M.D. CH: Report ID: [id number] Reading Location: [id number] Procedure Note Lorne Khalil Jr., MD - 09/30/2024 EXAM DESCRIPTION: NM RENAL FUNCTION FLOW WTH PHARM REASON FOR STUDY: Hydronephrosis for follow-up. RADIOPHARMACEUTICAL: 10.3 mCi Tc-99m MAG3 via a right forearm IV site. TECHNIQUE: After ensuring adequate hydration the patient received intravenous administration of the radiotracer and dynamic flow images were obtained of the bilateral kidneys in posterior projection. Imaging was performed in posterior projection for a total of 45 minutes. Regions of interest were drawn around the kidneys with time activity curves and statistics derived. 40 mg of Lasix IV was administered between 12 and 15 minutes. COMPARISON: 10/04/2023. FINDINGS: There appears to be grossly normal dynamic flow. There is an abnormal split function differential, the left kidney receives 35% in the right kidney 65% of uptake. There is a delayed time to peak of each kidney, the left kidney has an upgoing time activity curve throughout the majority of the examination with a time to peak of 26 minutes. The right kidney has a time to peak of 12.5 minutes (normal less than 10 minutes). The left kidney shows a relative plateau of activity following peak. The right kidney shows some minimal initial excretion and clearance prior to Lasix. Following Lasix, the right kidney diuretic T 1/2 is 9.5 minutes most characteristic of a dilated and patulous but nonobstructing right renal collecting system. Subjectively there is asymmetric retained radiotracer within a prominent dilated left renal pelvis. THIS IS AN ELECTRONICALLY VERIFIED FINAL REPORT 09/30/2024 2:21 PM - Electronically signed by Lorne Khalil M.D. CH: Report ID: [id number] Reading Location: [id number] IMPRESSION: 1. Persistent abnormal renogram of the left kidney with continued radiotracer accumulation evidence of obstructive uropathy nonresponsive to Lasix. 2. Right kidney shows features characteristic of mildly dilated and patulous but nonobstructing collecting system. 3. Delayed time to peak of each kidney. 4. Abnormal split function differential, left kidney 35% and right kidney 65%. us Herman Stacy HRBP, [employer] [facility] ORDERABLES Marta gregorio Result * CT ABDOMEN PELVIS W/ CONTRAST (09/29/2024 7:36 PM CDT) Anatomical Region Laterality Modality Abdomen N/A Computed Tomogra phy 09/29/2024 8:10 PM CDT Impressions 09/29/2024 8:12 PM CDT IMPRESSION: 1. Severe left hydronephrosis with marked dilatation of the left extrarenal pelvis with normal caliber of the left ureter likely reflecting sequela of ureteropelvic junction stricture/obstruction. Mildly delayed left renal nephrogram due to increased intrarenal pressures and hydronephrosis. No ureteral calculi. 2. Several bilateral nonobstructive renal calculi with the largest cluster measuring up to 13 mm in the lower pole of the left kidney and up to 4 mm right kidney. Narrative 09/29/2024 8:12 PM CDT EXAM DESCRIPTION: CT ABDOMEN PELVIS W/ CONTRAST REASON FOR STUDY: LUQ abdominal pain and left flank pain that started last evening. Hx of COPD and HTN TECHNIQUE: CT scan of the abdomen and pelvis performed with intravenous and without oral contrast using helical scanning technique with dynamic intravenous contrast injection. Reconstructed coronal and sagittal MPR images reviewed. All images stored on PACS. Automated exposure control was used as a dose optimization technique for this examination. CONTRAST TYPE/DOSE: 50mL of IOPAMIDOL 76 % IV SOLN injected COMPARISON: 10/04/2023 FINDINGS: LOWER CHEST: Moderate bilateral pulmonary emphysema with scattered regions of bilateral pulmonary parenchymal scarring. The previously described right middle lobe pulmonary nodule on CT 10/04/2023 is not imaged on the current examination. Mild bilateral bronchial wall thickening. Heart size is within normal limits. Imaged portions of the esophagus is within normal limits. LIVER: Normal size. No identified cystic or solid masses. Calcified hepatic granulomas. The portal and hepatic veins are patent. GALLBLADDER: Normal. BILE DUCTS: No intrahepatic or extrahepatic ductal dilatation. SPLEEN: Normal size. Calcified splenic granulomas. Heterogeneously hypoattenuating structure within the spleen measuring 15 mm is unchanged and is favored to reflect a benign etiology such as a lymphangioma. PANCREAS: No identified cystic or solid masses. No significant calcifications. No adjacent inflammation or peripancreatic fluid collections. Pancreatic duct not dilated. ADRENALS: Normal. KIDNEYS/URINARY TRACT: There is an unchanged 10 mm hypoattenuating lesion in the upper pole of the left kidney which could reflect a cyst.. There is severe left hydronephrosis with marked dilatation of the left extrarenal pelvis, extent of which is more pronounced compared to prior study, with normal caliber of the left ureter likely reflecting sequela of ureteropelvic junction stricture/obstruction. Mildly delayed left renal nephrogram due to increased intrarenal pressures and hydronephrosis. There are no ureteral calculi. Several bilateral nonobstructive renal calculi are present with the largest cluster measuring up to 13 mm in the lower pole of the left kidney and up to 4 mm right kidney. The urinary bladder is within normal limits. Right extrarenal pelvis is redemonstrated. GI: The stomach is normal. Small bowel and colon are normal in course and caliber with no evidence of obstruction or inflammation. Scattered colonic diverticulosis. No CT evidence of acute diverticulitis. No CT evidence of acute appendicitis. PERITONEUM: No ascites or free air. No lymphadenopathy. RETROPERITONEUM: No mass or adenopathy. REPRODUCTIVE: No significant abnormality. VASCULATURE: No abdominal aortic aneurysm. Extensive atherosclerotic calcifications of the abdominal aorta and its branches including focal extensive calcified plaques in the suprarenal abdominal aorta resulting in severe stenosis, not substantially changed compared to prior examination. MUSCULOSKELETAL: No acute fractures or aggressive bone lesions. Osteopenia. 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 AT: AT Report ID: [id number] Reading Location: [id number] Procedure Note Ebonie Collins MD - 09/29/2024 EXAM DESCRIPTION: CT ABDOMEN PELVIS W/ CONTRAST REASON FOR STUDY: LUQ abdominal pain and left flank pain that started last evening. Hx of COPD and HTN TECHNIQUE: CT scan of the abdomen and pelvis performed with intravenous and without oral contrast using helical scanning technique with dynamic intravenous contrast injection. Reconstructed coronal and sagittal MPR images reviewed. All images stored on PACS. Automated exposure control was used as a dose optimization technique for this examination. CONTRAST TYPE/DOSE: 50mL of IOPAMIDOL 76 % IV SOLN injected COMPARISON: 10/04/2023 FINDINGS: LOWER CHEST: Moderate bilateral pulmonary emphysema with scattered regions of bilateral pulmonary parenchymal scarring. The previously described right middle lobe pulmonary nodule on CT 10/04/2023 is not imaged on the current examination. Mild bilateral bronchial wall thickening. Heart size is within normal limits. Imaged portions of the esophagus is within normal limits. LIVER: Normal size. No identified cystic or solid masses. Calcified hepatic granulomas. The portal and hepatic veins are patent. GALLBLADDER: Normal. BILE DUCTS: No intrahepatic or extrahepatic ductal dilatation. SPLEEN: Normal size. Calcified splenic granulomas. Heterogeneously hypoattenuating structure within the spleen measuring 15 mm is unchanged and is favored to reflect a benign etiology such as a lymphangioma. PANCREAS: No identified cystic or solid masses. No significant calcifications. No adjacent inflammation or peripancreatic fluid collections. Pancreatic duct not dilated. ADRENALS: Normal. KIDNEYS/URINARY TRACT: There is an unchanged 10 mm hypoattenuating lesion in the upper pole of the left kidney which could reflect a cyst.. There is severe left hydronephrosis with marked dilatation of the left extrarenal pelvis, extent of which is more pronounced compared to prior study, with normal caliber of the left ureter likely reflecting sequela of ureteropelvic junction stricture/obstruction. Mildly delayed left renal nephrogram due to increased intrarenal pressures and hydronephrosis. There are no ureteral calculi. Several bilateral nonobstructive renal calculi are present with the largest cluster measuring up to 13 mm in the lower pole of the left kidney and up to 4 mm right kidney. The urinary bladder is within normal limits. Right extrarenal pelvis is redemonstrated. GI: The stomach is normal. Small bowel and colon are normal in course and caliber with no evidence of obstruction or inflammation. Scattered colonic diverticulosis. No CT evidence of acute diverticulitis. No CT evidence of acute appendicitis. PERITONEUM: No ascites or free air. No lymphadenopathy. RETROPERITONEUM: No mass or adenopathy. REPRODUCTIVE: No significant abnormality. VASCULATURE: No abdominal aortic aneurysm. Extensive atherosclerotic calcifications of the abdominal aorta and its branches including focal extensive calcified plaques in the suprarenal abdominal aorta resulting in severe stenosis, not substantially changed compared to prior examination. MUSCULOSKELETAL: No acute fractures or aggressive bone lesions. Osteopenia. 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 AT: AT Report ID: [id number] Reading Location: [id number] IMPRESSION: 1. Severe left hydronephrosis with marked dilatation of the left extrarenal pelvis with normal caliber of the left ureter likely reflecting sequela of ureteropelvic junction stricture/obstruction. Mildly delayed left renal nephrogram due to increased intrarenal pressures and hydronephrosis. No ureteral calculi. 2. Several bilateral nonobstructive renal calculi with the largest cluster measuring up to 13 mm in the lower pole of the left kidney and up to 4 mm right kidney. Dilip Garcia MD IMG CT ORDERABLES Final R esult * (ABNORMAL) URINALYSIS REFLEX IF INDICATED BY ABNORMAL RESULTS (09/29/2024 7:05 PM CDT) SPECIFIC GRAVITY 1.010 1.003 - 1.030 09/29/2024 7:18 PM CDT [facility] URINE PH 7.0 5.0 - 9.0 09/29/2024 7:18 PM CDT [facility] WBC ESTERASE Negative Negative 09/29/2024 7:18 PM CDT [facility] NITRITE Negative Negative 09/29/2024 7:18 PM CDT [facility] PROTEIN, RANDOM URINE 15 mg/dL(A) Negative 09/29/2024 7:18 PM CDT [facility] URINE GLUCOSE, QUAL Negative Negative 09/29/2024 7:18 PM CDT [facility] URINE KETONES Negative Negative 09/29/2024 7:18 PM CDT [facility] UROBILINOGEN Normal Normal mg/dL 09/29/2024 7:18 PM CDT [facility] URINE BLOOD Negative Negative tanna/ul 09/29/2024 7:18 PM CDT [facility] URINALYSIS COLOR Light Yellow 2024 7:18 PM CDT [facility] URINALYSIS CLARITY Clear 09/29/2024 7:18 PM CDT [facility] Urine URINE SPECIMEN OBTAINED BY CLEAN CATCH PROCEDURE / Unknown Non-Phlebotomy Collection / Unknown 09/29/2024 7:05 PM CDT 09/29/2024 7:09 PM CDT us Dilip Garcia MD URINE ORDERABLES Final Re sult [facility] [place] [address] * Critical Care (09/29/2024 6:38 PM CDT) Narrative Dilip Garcia MD - 09/29/2024 6:38 PM CDT Dilip Garcia MD 09/29/2024 8:52 PM Critical Care Performed by: Dilip Garcia MD Authorized by: Dilip Garcia MD Critical care provider statement: Critical care time (minutes): 40 Critical care time was exclusive of: Separately billable procedures and treating other patients Critical care was necessary to treat or prevent imminent or life-threatening deterioration of the following conditions: Left UPJ obstruction. Critical care was time spent personally by me on the following activities: Development of treatment plan with patient or surrogate, evaluation of patient's response to treatment, examination of patient, obtaining history from patient or surrogate, ordering and performing treatments and interventions, ordering and review of radiographic studies, pulse oximetry and re-evaluation of patient's condition I assumed direction of critical care for this patient from another provider in my specialty: no Care discussed with: admitting provider Dilip Garcia MD PROCEDURE/MINOR SURGICAL ORDERABLES Final Result * Gold Top Tube (09/29/2024 6:30 PM CDT) Blood No Phlebotomy Charged / Unknown 09/29/2024 6:30 PM CDT 09/29/2024 6:40 PM CDT Dilip Garcia MD CHEMISTRY ORDERABLES Marta l Result Performing Organization Address [facility] Co de Phone Number [facility] [place] [address] * Blue Top Tube (09/29/2024 6:30 PM CDT) Blood No Phlebotomy Charged / Unknown 09/29/2024 6:30 PM CDT 09/29/2024 6:40 PM CDT Dilip Garcia MD HEMATOLOGY ORDERABLES Fin al Result Performing Organization Address City/[facility]/ZIP Co de Phone Number [facility] [place] [address] * Lipase (09/29/2024 6:30 PM CDT) [facility] LIPASE 24 8 - 78 U/L 09/29/2024 7:00 PM CDT [facility] Blood Venipuncture / Unknown 09/29/2024 6:30 PM CDT 09/29/2024 6:39 PM CDT us Dilip Garcia MD CHEMISTRY ORDERABLES Marta l Result 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 REFERENCE: Bone mineral density: T-Score: Normal (T-score above or = -1.0) Low bone mass (T-score between -1.0 and -2.5) replaces the previously used term osteopenia Osteoporosis (T-score = or below -2.5) Z-Score: Within the expected range for age (Z-score above -2.0) Below the expected range for age (Z-score is -2.0 or below) Please see below follow up recommendations. Medical evaluation for secondary causes of low bone mineral density may be appropriate. FRAX is a World Health Organization validated fracture risk assessment tool that calculates a person's 10 year probability of a major osteoporosis related fracture and hip fracture. According to the National Osteoporosis Foundation guidelines, postmenopausal women and men age 50 or older with low bone mass and a 10 year probability of a major osteoporosis related fracture = or greater than 20% or a 10 year probability of a hip fracture = or greater than 3% should be considered for pharmacological treatment for the prevention of osteoporosis. 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 EXAM DESCRIPTION: [facility] BONE DENSITOMETRY AXIAL SKELETON REASON FOR STUDY: 78 y/o year old F with given history of: Age-related osteoporosis without current pathological fracture [employer]/Model: [id number] (S/N [id number]) CLINICAL INFORMATION: Current height: 63 inches Maximum height: 63 inches Weight: 103 pounds Risk factors: Postmenopausal, smoking history, adult fracture, asthma or emphysema COMPARISON: None available FINDINGS: AP LUMBAR SPINE L1-L4: Total BMD is 0.773 g/cm2 T-score is -3.4 LEFT HIP: Total BMD is 0.409 g/cm2 T-score is -4.8 Femoral neck BMD is 0.505 g/cm2 T-score is -3.8 FRAX: FRAX not reported due to T-scores of hip, femoral neck and/or spine being at or below -2.5 (Osteoporosis). THIS IS AN ELECTRONICALLY VERIFIED FINAL REPORT 12/25/2023 9:25 PM - Electronically signed by Yordan Riojas M.D. MF: DARIA Report ID: [id number] Reading Location: [place] [id number] Procedure Note Yordan Riojas MD - 12/25/2023 EXAM DESCRIPTION: [facility] BONE DENSITOMETRY AXIAL SKELETON REASON FOR STUDY: 78 y/o year old F with given history of: Age-related osteoporosis without current pathological fracture [employer]/Model: [id number] (S/N [id number]) CLINICAL INFORMATION: Current height: 63 inches Maximum height: 63 inches Weight: 103 pounds Risk factors: Postmenopausal, smoking history, adult fracture, asthma or emphysema COMPARISON: None available FINDINGS: AP LUMBAR SPINE L1-L4: Total BMD is 0.773 g/cm2 T-score is -3.4 LEFT HIP: Total BMD is 0.409 g/cm2 T-score is -4.8 Femoral neck BMD is 0.505 g/cm2 T-score is -3.8 FRAX: FRAX not reported due to T-scores of hip, femoral neck and/or spine being at or below -2.5 (Osteoporosis). THIS IS AN ELECTRONICALLY VERIFIED FINAL REPORT 12/25/2023 9:25 PM - Electronically signed by Yordan Riojas M.D. MF: DARIA Report ID: [id number] Reading Location: [place] [id number] IMPRESSION: Osteoporosis. REFERENCE: Bone mineral density: T-Score: Normal (T-score above or = -1.0) Low bone mass (T-score between -1.0 and -2.5) replaces the previously used term osteopenia Osteoporosis (T-score = or below -2.5) Z-Score: Within the expected range for age (Z-score above -2.0) Below the expected range for age (Z-score is -2.0 or below) Please see below follow up recommendations. Medical evaluation for secondary causes of low bone mineral density may be appropriate. FRAX is a World Health Organization validated fracture risk assessment tool that calculates a person's 10 year probability of a major osteoporosis related fracture and hip fracture. According to the National Osteoporosis Foundation guidelines, postmenopausal women and men age 50 or older with low bone mass and a 10 year probability of a major osteoporosis related fracture = or greater than 20% or a 10 year probability of a hip fracture = or greater than 3% should be considered for pharmacological treatment for the prevention of osteoporosis. For further information, including treatment recommendations, please refer to the 2019 ISCD Official Positions (http://www.iscd.org) and the NOF's Clinician's Guide to Prevention and Treatment of Osteoporosis (http://www.nof.org/professionals/clinical-guidelines) Don Carvajal [facility] IM DEXA ORDERABLES Final Res ult from Last 3 Months or Most Recently Relevant to Health Maintenance Insurance MEDICARE [facility] Advance Directives * No CPR-Selective Treatment (Latest Code Status on File) Date Activated Date Inactivated Comments 11/05/2024 12:25 AM No CPR - Debbi ctive Treatment: FULL ARREST: Do Not Attempt Resuscitation. PRE-ARREST: DO NOT USE INTUBATION OR MECHANICAL VENTILATION, but may use basic medical treatment like CPAP or BiPAP, antibiotics, IV fluids, oxygen, etc. Avoid care in ICU setting. Question Answer Comments Physician documentation made in notes? Yes * No CPR-Selective Treatment Date Activated Date Inactivated Comments 09/29/2024 11:15 PM 11/05/2024 12:25 AM No CPR - S elective Treatment: FULL ARREST: Do Not Attempt Resuscitation. PRE-ARREST: DO NOT USE INTUBATION OR MECHANICAL VENTILATION, but may use basic medical treatment like CPAP or BiPAP, antibiotics, IV fluids, oxygen, etc. Avoid care in ICU setting. Question Answer Comments Physician documentation made in notes? Yes * Full Code Date Activated Date Inactivated Comments 05/10/2016 2:45 PM 05/18/2016 3:40 PM CPR-Full Edith tment: FULL ARREST: Attempt Resuscitation/CPR wit intubation and mechanical ventilation. PRE-ARREST: Use entire range of life support measures to stabilize the patient. * Full Code Date Activated Date Inactivated Comments 05/10/2016 12:27 PM 05/10/2016 2:45 PM CPR-Full Edith tment: FULL ARREST: Attempt Resuscitation/CPR wit intubation and mechanical ventilation. PRE-ARREST: Use entire range of life support measures to stabilize the patient. * Full Code Date Activated Date Inactivated Comments 05/08/2016 3:41 PM 05/10/2016 12:27 PM CPR-Full Edith tment: FULL ARREST: Attempt Resuscitation/CPR wit intubation and mechanical ventilation. PRE-ARREST: Use entire range of life support measures to stabilize the patient. Care Teams Buckle Sorter Relationship Specialty Start Date End Date Don Carvajal, [facility] [address] [place] [id number] PCP - General Physician Warping Machine Operator 05/18/16 Mitzi Miller APRN, [employer] [address] [place] [address] Nurse Practitioner Advanced Practice Nurse 07/23/23 Chong Cordova MD #[address] [address] Consulting Physician Urology 09/11/23
--- OUTSIDE RECORDS SUMMARY | 2024-11-09 21:02 | XMS_ITS | Encounter Summary ---
Author Organization [facility] Address [address] [place] [address] Phone Care Team Providers Care Speed Belt Sander Name Role Phone Don Carvajal Primary Care Provider [phone] Mitzi Miller APRN, SAP BPC ARCHITECT Unavailable Chong Cordova MD Unavailable [phone] Encounter Details Date Type Department Care Team (Late st Contact Info) Description 10/13/2024 Telephone [facility] [address] [place] [address] Chong Cordova MD [address] [address] Social History Tobacco Use Types Packs/Day Years [...] with family, friends, or neighbors? Patient declined 09/29/2024 How often do you get togethe r with friends or relatives? Patient declined 09/29/2024 How often do you attend scientologist or catholic serv ices? Patient declined 09/29/2024 Do you belong to any clubs o r organizations such as scientologist groups, unions, fraternal or athletic groups, or school groups? Patient declined 09/29/2024 How often do you attend meet ings of the clubs or organizations you belong to? Patient declined 09/29/2024 Are you , , di vorced, , never , or living with a partner? Patient declined 09/29/2024 AUDIT-C Answer Date Recorded Q1: How often do you have a drink containing alc ohol? Patient declined 09/29/2024 Q2: How many drinks containi ng alcohol do you have on a typical day when you are drinking? Patient declined 09/29/2024 Q3: How often do you have si x or more drinks on one occasion? Patient declined 09/29/2024 Overall Financial Resource Strain (CARDIA) Answe r Date Recorded How hard is it for you to pa y for the very basics like food, housing, medical care, and heating? Patient declined 09/29/2024 [facility] - Occupational Stress Questionnaire Answer Date Recorded Do you feel stress - tense, restless, nervous, or anxious, or unable to sleep at night because your mind is troubled all the time - these days? Patient declined 09/29/2024 Exercise Vital Sign Answer Date Recorde d On average, how many days pe r week do you engage in moderate to strenuous exercise (like a brisk walk)? Patient declined On average, how many minutes do you engage in exercise at this level? Patient declined 09/29/2024 Hunger Vital Sign Answer Date Recorded Within [...] appointments or from getting medications? Patient declined 09/29/2024 In the past 12 months, has l ack of transportation kept you from meetings, work, or from getting things needed for daily living? Patient declined 09/29/2024 Housing Stability Vital Sign Answer Dave e Recorded In the last 12 months, was t here a time when you were not able to pay the mortgage or rent on time? Patient declined 09/30/19 In the past 12 months, how m any times have you moved where you were living? 1 09/29/2024 At any time in the past 12 m [facility], were you homeless or living in a correction (including now)? Patient declined 09/29/2024 [facility] Utilities Answer Date Recorded In the past 12 months has th e electric, gas, oil, or water company threatened to shut off services in your home? Patient declined 09/29/2024 Sexually Active Control Partners Comments Not Currently Comments No Sex and Gender Information Value Date Recorded Sex Assigned at Not on file Legal Sex Female 9:52 AM CDT Gender Identity Not on file Sexual Orientation Not on file documented as of this encounter Plan of Treatment Upcoming Encounters Date Type Department Care Team (Late st Contact Info) Description 11/11/2024 1:30 AM CDT [facility] [address] [place] [address] Yamile Abel, RN MD 11/12/2024 11:30 AM CDT [facility] [address] [place] [address] Nidhi Sharpe PT MD 11/13/2024 2:30 AM CDT Appointment [facility] [address] [place] [id number] Heidi Little OT documented as of this encounter Visit Diagnoses Not on filedocumented in this encounter Additional Health Concerns Infection Onset Date Last Indicated Resolved Time Respiratory Rule-Out 11/04/2024 11/04/2024 025 11:21 PM CDT documented as of this encounter Care Teams Speed Belt Sander Relationship Specialty Start Date End Date Don Carvajal PAC [address] [place] [address] PCP - General Physician [facility] 05/18/16 Mitzi Miller APRN, SAP BPC ARCHITECT [address] [place] [address] Nurse Practitioner Advanced Practice Nurse 07/23/23 Chong Cordova MD #[address] [address] Consulting Physician Urology 09/11/23 documented as of this encounter
--- NOTE | 2024-11-09 21:35 | ED_ITS ---
HPI - General Adult General Chief complaint: Urogenital-Female Stated complaint: unable to urinate, bowel blockage? Time Seen by Provider: 11/09/24 20:28 Source: patient Mode of arrival: ambulatory Limitations: no limitations History of Present Illness HPI narrative: Patient is a 79-year-old female who presents the ED with report of constipation and difficulty urinating. Patient reports she was admitted to an outside hospital last week for pulmonary issues. Hx of COPD. She is currently on steroids, abx, home O2. She reports since her hospitalization, she has been having issues with constipation. Last bowel movement was Sunday. She has been taking laxatives and suppositories without improvement. She reports abdominal bloating, sensation of rectal blockage with diarrhea seeping around. Reports some discomfort throughout her lower abdomen. Reports today she began to have difficulty urinating, states she had not urinated in at least 12 hours which prompted her presentation. She does have history of chronic issues with her left kidney and left ureter. She is scheduled to undergo reconstructive surgery of her left ureter later this month with Dr. López with [facility]. Related Data Allergies Allergy/AdvReac Type Severity Reaction Status Date / Time codeine Allergy Intermediate Vomiting Verified 11/09/24 21:43 Review of Systems 2 Review of Systems: All systems reviewed & are unremarkable except as noted in HPI. All systems reviewed & are unremarkable except as noted in HPI and below PMFSH Past Medical History Medical History (Updated 11/11/24 @ 09:35 by Juanita Quiles PA-C) Aortic atherosclerosis Exam 2 Narrative: GENERAL: Elderly, frail/thin, non-toxic, in no acute distress. HEAD: Normocephalic, atraumatic. RESPIRATORY: Airway patent, respirations nonlabored. Clear to auscultation bilaterally, no rales, rhonchi, wheezing. CARDIOVASCULAR: Regular rate and rhythm without murmurs, rubs, or gallops. ABDOMINAL: Soft, mild TTP in L lower abdomen/suprapubic region, nondistended. Normoactive BS. MUSCULOSKELETAL: Moves all extremities. No gross deformities. SKIN: Warm, dry, normal color. NEURO: A&O X3. Speech clear. Cranial nerves II-XII grossly intact. Steady gait. No ataxic movements. PSYCHIATRIC: Appropriate mood and affect. Normal interaction. Course Vital Signs Vital signs: Vital Signs Temperature 97.5 F L 10/05/25 20:00 Respiratory Rate 21 H 11/09/24 20:00 Blood Pressure 133/63 11/09/24 20:00 Pulse Oximetry 93 11/09/24 20:00 Oxygen Delivery Nasal Cannula 11/09/24 20:00 Oxygen Flow Rate 2 11/09/24 20:00 Temperature 97.8 F 11/10/24 02:56 Pulse Rate 73 11/10/24 02:56 Respiratory Rate 24 H 11/10/24 02:56 Blood Pressure 160/72 H 11/10/24 02:56 Pulse Oximetry 98 11/10/24 02:56 Oxygen Delivery Room Air 11/09/24 20:18 Oxygen Flow Rate 2 11/09/24 20:00 Medical Decision Making MDM Narrative Medical decision making narrative: Patient presented to ED with 1 week history of constipation, difficulty urinating today. Recent hospitalization for lung issues which are improving. Vital signs are stable upon arrival. Patient is in no acute distress. She was found to be in acute urinary retention with bladder scan greater than 600. Ellis catheter was placed. UA does not appear acutely infectious. Cbc with white blood cell count of 11.1. CMP with sodium 127. No records to compare to. Patient has ever been seen in our facility before. Kidney function is stable. Lactic acid 2.0. Patient given fluids. CT scan of abdomen/pelvis was obtained: chronic left ureteral changes, Ellis catheter in the bladder. Showing large lung nodule. Patient has recently underwent workup for pulmonary issues, aware of these findings. Areas concerning for occlusive for nearly occlusive calcifications along aorta, at and above the level of the renal arteries. Discussed these findings with patient. She is unaware of any aortic disease. Feel strongly this is an incidental findings. She is not exhibiting any symptoms of mesenteric ischemia, ischemic limb. Good peripheral pulses/temp/color, no pain out of proportion, lactic WNL, no pain or swelling in arms/legs. Will discuss with vascular surgery nonetheless. Discussed case with Dr. Vargas, vascular surgery @ [facility], advised patient has had similar findings on CT imaging for the past 1.5 years. Recommended OP f/u in clinic ([phone]). Discussed case with Dr. Chang, vascular surgery @ [facility], agreed chronic findings. F/u in outpatient setting ([phone]) Personal review of CT images does show a large amount of stool throughout colon with possible fecal impaction. Discussed this with patient. She is agreeable to constipation management in the ED. JAS was performed in the ED with distal this impaction. Stool soft and easily broken up. Brown in color. Patient given MiraLax and Dulcolax. Soapsuds enema given. Patient tolerated this well. Had a large bowel movement afterwards. Feeling much improved. Feel she is safe for discharge home with outpatient follow-up. Will discharge with Ellis catheter. She is in agreement this. Advised close f/u with urology, PCP. Discussed repeat laboratory testing for low sodium. Discussion additional constipation management. Discussed strict return precautions. Patient voiced understanding. D/C in stable condition. Medical Records Medical records reviewed: Yes I reviewed the external patient's medical records. Vital Signs Vital Signs: Vital Signs Temperature 97.5 F L 11/09/24 20:00 Respiratory Rate 21 H 11/09/24 20:00 Blood Pressure 133/63 11/09/24 20:00 Pulse Oximetry 93 11/09/24 20:00 Oxygen Delivery Nasal Cannula 11/09/24 20:00 Oxygen Flow Rate 2 11/09/24 20:00 Temperature 97.8 F 11/10/24 02:56 Pulse Rate 73 11/10/24 02:56 Respiratory Rate 24 H 11/10/24 02:56 Blood Pressure 160/72 H 11/10/24 02:56 Pulse Oximetry 98 11/10/24 02:56 Oxygen Delivery Room Air 11/09/24 20:18 Oxygen Flow Rate 2 11/09/24 20:00 Lab Data Lab results reviewed: Yes I reviewed the patient's lab results. 11/09/24 20:24 11/09/24 20:24 Labs: Lab Results 11/09/24 11/09/24 Range/Units 20:24 20:44 WBC 11.1 H (4.5-10.0) K/mm3 RBC 4.84 (4.2-5.4) M/mm3 Hgb 14.8 (12.0-15.0) g/dL Hct 45.0 (37.0-47.0) % MCV 93.0 (80-100) fl MCH 30.6 (26-34) pg MCHC 32.9 (32-36) g/dl RDW 12.3 (11.5-14.5) % Plt Count 350 (150-375) k/mm3 MPV 8.9 (7.4-10.4) fl Immature Gran % (Auto) 0.4 (0-0.5) % Neut % (Auto) 84.3 H (45.5-73.1) % Lymph % (Auto) 10.5 L (18.3-44.2) % [place] % (Auto) 4.7 (2.6-8.5) % Eos % (Auto) 0.0 (0-4.4) % Baso % (Auto) 0.1 L (0.2-1.2) % Lymph # (Auto) 1.17 (0.9-3.2) K/mm3 [place] # (Auto) 0.5 (0.1-0.6) K/mm3 Eos # (Auto) 0.0 (0-0.3) K/mm3 Baso # (Auto) 0.0 (0.0-0.1) K/mm3 Abs Immat Gran (auto) 0.04 H (0.00-0.031) K/mm3 Absolute Neuts (auto) 9.4 H (1.3-6.7) K/mm3 Absolute Nucleated RBC 0.000 (0.0-0.012) K/mm3 Nucleated RBC % 0.0 (0.0-0.2) % Sodium 127 L (137-145) mmol/L Potassium 4.3 (3.4-5.0) mmol/L Chloride 92 L (98-107) mmol/L Carbon Dioxide 32 H (22-30) mmol/L Anion Gap 3 L (4-12) mmol/L BUN 15 (7-17) mg/dL Creatinine 0.52 L (0.7-1.0) mg/dL Estim Creat Clear Calc 46 ml/min Estimated GFR > 60 (59 - ) Glucose 123 H (65-110) mg/dL Lactic Acid 2.0 (0.7-2.0) mmol/L Calcium 9.9 (8.4-10.2) mg/dL Total Bilirubin 0.5 (0.2-1.3) mg/dL AST 25 (14-36) U/L ALT 26 (6-35) U/L Alkaline Phosphatase 96 (38-126) U/L Total Protein 6.9 (6.3-8.2) g/dL Albumin 4.1 (3.5-5.1) g/dL Lipase 59 (23-300) U/L Urine Color Yellow (Yellow) Urine Appearance Clear (Clear) Urine pH 6.0 (5.0-9.0) Ur Specific [place] 1.012 (1.001-1.035) Urine Protein Negative (Negative) mg/dL Urine Glucose (UA) Negative (Negative) mg/dL Urine Ketones Negative (Negative) mg/dL Ur Blood (Man) Negative (Negative) Urine Nitrate Negative (Negative) Urine Bilirubin Negative (Negative) Urine Urobilinogen 0.2 (<2.0) mg/dL Leukocyte Esterase Rfl Trace H (Negative) MARIA G/UL Urine RBC 0-2 (0-2) /hpf Urine WBC 0-5 (0-3) /hpf Ur Squamous Epith Cells None seen (Few) /hpf Urine Bacteria None seen /hpf Urine Casts 0-2 Imaging Data Attestation: I personally reviewed and interpreted this imaging study as follows: Radiologist's impression: STAT RAD CT abd/pelvis: No definite acute finding. Severe potentially occlusive or nearly occlusive upper abdominal aortic endophytic calcifications at and above the level of the renal arteries. Recommend vascular surgery consultation. Ellis catheter in the bladder. Left moderate hydronephrosis probably representing UPJ obstruction without definite obstructing lesion seen. Recommend urology consultation. Recommend CT chest for partly seen right middle lobe 1.5 cm nodule. Discharge Plan Discharge Clinical Impression: Acute urinary retention, Aortic atherosclerosis, Hyponatremia Constipation Qualifiers: Constipation type: unspecified constipation type Qualified Code(s): K59.00 - Constipation, unspecified Patient Disposition: Home Condition: Stable Instructions: Antibiotic Form, Constipation (ED), High Fiber Diet (ED), Acute Urinary Retention in Women (ED) Additional Instructions: Recommend MiraLax and Dulcolax up to twice daily over the next 1 week for constipation. If you develop diarrhea, you may decrease this to once per day or every other day. Stay very well hydrated. Recommend plenty of fluids. Recommend high-fiber diet. Recommend close follow-up with your primary care doctor for further evaluation and repeat laboratory testing. Your sodium level was slightly low today. Also recommend follow-up with your Urology team for further management of Ellis catheter. Return to the ED if you experience worsening or severe symptoms, severe constipation, severe pain, unable to keep down food or drink, fevers, persistent rectal bleeding, dark black stool, or any other symptoms of concern. -- There was heavy calcification seen throughout your aorta on imaging today. It is recommended you follow-up with vascular surgery as an outpatient. Call office to make appointment. Vascular surgery [facility]: [phone] Vascular surgery [facility]: [phone] Patient Language: Luxembourgish Prescriptions: New bisacodyl [Dulcolax (bisacodyl)] 5 mg tablet,delayed release (DR/EC) 5 mg PO BID PRN (Reason: constipation) Qty: 30 0RF Follow-up/Referrals: PHYSICIAN NOT ON STAFF,NONSTAFF [Primary Care Provider] Time of Disposition: 02:23
[2024-11-09] MEDS: SODIUM CHLORIDE 0.9% IV 1,000 ML 500 ML IV CONT (21:48)
[2024-11-10 00:09] VITALS: BP 153/66; PULSE 69; RESP 19; O2SAT 96
[2024-11-10] MEDS: BISACODYL 5 MG TABLET EC PO (00:51)
[2024-11-10 01:22] VITALS: BP 158/64; PULSE 72; RESP 22; O2SAT 96
[2024-11-10 02:56] VITALS: BP 160/72; PULSE 73; RESP 24; TEMP 36.6; O2SAT 98
== END 2024-11-10 02:57 | disposition home or self-care (01) ==
PROVIDERS: Student in an Organized Health Care Education/Training Program; Emergency Provider Physician Assistant
DX: K59.00 Constipation, unspecified (principal); R33.9 Retention of urine, unspecified; E87.1 Hypo-osmolality and hyponatremia; I70.0 Atherosclerosis of aorta; J44.9 Chronic obstructive pulmonary disease, unspecified; Z99.81 Dependence on supplemental oxygen; R91.1 Solitary pulmonary nodule; N20.0 Calculus of kidney; N13.30 Unspecified hydronephrosis; R16.1 Splenomegaly, not elsewhere classified
CPT/HCPCS: 36415; 51702; 74177; 80053; 81001; 83605; 83690; 85025; 96360; 96361; 99284; A9270; J7030; Q9967